=== PATIENT | female | born 1955 | race Caucasian/White ===

== ENCOUNTER 2024-03-18 20:09 | Inpatient (IN) | payer MEDICARE, BC, SELFPAY ==
[2024-03-18] VITALS (22 sets, daily range): BP systolic 82–99; BP diastolic 42–56; PULSE 94–113; RESP 20; TEMP 35.6; O2SAT 90–97; BMI 50.1
--- NOTE | 2024-03-18 20:31 | CRLHL7_ITS ---
For Patients: As a result of the Cures Act, medical imaging exams and procedure reports are released immediately into your electronic medical record. You may view this report before your referring provider. If you have questions, please contact your health care provider. INDICATION: Diffuse abdominal pain. TECHNIQUE: CT abdomen and pelvis acquired with 95 cc of Isovue 370 IV contrast. COMPARISON: CT chest from the same day. FINDINGS: Lower chest: Dictated separately. Liver: Unremarkable. Normal in size and attenuation. No suspicious masses. Gallbladder and bile ducts: Status post cholecystectomy. No abnormal biliary ductal dilatation. Pancreas: Unremarkable. No mass or inflammation. Spleen: Unremarkable. Normal in size. No masses. Adrenal glands: Unremarkable. No nodules. Kidneys: 2 small nonobstructing right nephroliths measuring up to 7 mm. Unremarkable left kidney. No suspicious mass. No hydronephrosis. GI tract: Diverticulosis without pericolonic inflammation. No obstruction. Normal appendix. Vasculature: Abdominal aorta is normal in caliber. Mesenteric arteries are patent. Lymph nodes: No lymphadenopathy. Peritoneum/Abdominal Wall: Unremarkable. No free air or significant free fluid. Pelvis: Status post hysterectomy. Bones: Unremarkable for age. IMPRESSION: 1. No acute findings within the abdomen or pelvis. 2. Few nonacute findings, as above. Please note that all CT scans at this facility use dose modulation, iterative reconstruction, and/or weight-based dosing when appropriate to reduce radiation dose to as low as reasonably achievable. Dictated by Nghia Moreno MD @ 03/18/2024 10:40:22 PM (Electronically Signed)
--- NOTE | 2024-03-18 20:32 | CRLHL7_ITS ---
For Patients: As a result of the Century Cures Act, medical imaging exams and procedure reports are released immediately into your electronic medical record. You may view this report before your referring provider. If you have questions, please contact your health care provider. INDICATION: Shortness of breath. TECHNIQUE: CT chest PE was acquired with 95 cc Isovue 370 IV contrast. COMPARISON: CT abdomen and pelvis from the same day. FINDINGS: Heart and vasculature: Contrast opacification of the pulmonary arterial tree is adequate. No sign of pulmonary embolism. Heart size is normal. Thoracic aorta and pulmonary artery are normal in caliber. Lungs and pleura: No suspicious nodules or infiltrates. Mild atelectasis within the anterior lingula. No pleural effusions or pneumothorax. Lymph nodes/mediastinum: No mediastinal, hilar, or axillary adenopathy. Chest wall: No masses. Upper abdomen: Dictated separately. Bones: Old right lateral 6th and anterolateral left 5th-7th rib fractures. IMPRESSION: No pulmonary embolism. No acute findings in the chest. Please note that all CT scans at this facility use dose modulation, iterative reconstruction, and/or weight-based dosing when appropriate to reduce radiation dose to as low as reasonably achievable. Dictated by Nghia Moreno MD @ 03/18/2024 10:25:06 PM (Electronically Signed)
--- NOTE | 2024-03-18 20:32 | CRLHL7_ITS ---
For Patients: As a result of the Century Cures Act, medical imaging exams and procedure reports are released immediately into your electronic medical record. You may view this report before your referring provider. If you have questions, please contact your health care provider. INDICATION: Delirious. TECHNIQUE: CT head without contrast. COMPARISON: None. FINDINGS: Brain parenchyma, CSF spaces, and extra-axial spaces: The denney-white differentiation is normal. No sign of mass, hemorrhage, or midline shift. No hydrocephalus. No extra-axial fluid collection. Skull base and calvarium: The visualized paranasal sinuses demonstrate no acute or significant findings. The mastoid air cells are clear. The visualized orbits are grossly unremarkable. No skull fracture. Atherosclerotic calcification of the bilateral carotid siphons. IMPRESSION: No evidence of an acute intracranial abnormality. Please note that all CT scans at this facility use dose modulation, iterative reconstruction, and/or weight-based dosing when appropriate to reduce radiation dose to as low as reasonably achievable. Dictated by Nghia Moreno MD @ 03/18/2024 10:19:24 PM (Electronically Signed)
--- NOTE | 2024-03-18 20:33 | ED.GENADULT ---
HPI - General Adult General Date Seen: 03/18/24 Chief complaint: Weakness Stated complaint: Weakness Time Seen by Provider: 03/18/24 20:10 Source: patient and EMS Mode of arrival: EMS Limitations: no limitations History of Present Illness HPI narrative: Patient is a 68-year-old female presenting to the emergency department for multiple complaints. For the past 5 days she has been having body aches, chills, shortness of breath. Today she started having. Continence. She states she feels like she constantly has to urinate but cannot hold it in time to make it to the bathroom. This is abnormal for her. Has not had any pain or burning urination but does state it has been very dark. She believes there is some blood in it. Does not have a history of frequent UTIs. States she bought a home test strips and checked for UTI it was negative. She also had a negative home COVID test. She has continued to get weaker with a headache and shortness of breath so EMS was called. EMS arrived they states she was satting 90% on room air. She was placed on oxygen. She states she is having a headache also. Has been trying drink plenty of fluids but has not had much to eat. States she is always feeling chills and having diaphoretic. Has not had any fevers. Her daughter states the patient seems to be delirious. No history of heart or lung disease. She does have diabetes. States she last saw her primary care doctor week ago and everything was normal. She is also having diffusely tender abdomen. Has had previous C-sections and cholecystectomy. She states she cannot say exactly where the pain hurts just that everything hurts. States he had a bowel movement yesterday was normal. Has not had any nausea or vomiting. Related Data Allergies Allergy/AdvReac Type Severity Reaction Status Date / Time No Known Drug Allergies Allergy Verified 03/18/24 20:18 Review of Systems Status of ROS: Reports: 10 or more systems reviewed and unremarkable except as noted in History and below Exam Narrative: Exam Narrative: Const: Well-nourished, Well-developed, in moderate distress Eyes: PERRL, no conjunctival injection, and symmetrical lids HENT: Atraumatic external nose and ears. Moist mucous membranes. Neck: Symmetric, trachea midline, No thyromegaly. CVS: Tachycardia, No murmurs or gallops. Peripheral pulses 2+ and equal in all extremities RESP: Increased respiratory effort. Clear to auscultation bilaterally. GI: Diffusely tender abdomen, No rebound or guarding. MSK:Extremities w/o deformity, Normal Active ROM Skin: Warm, Dry. No rashes or lesions. Neuro: Normal Muscle tone, No focal neurological deficits. Psych: Awake, Alert, & Oriented x3. Appropriate mood and affect. Const: Vital Signs, click to edit/add: Vital Signs - 24 hr 03/18/24 20:13 03/18/24 20:56 03/18/24 21:00 Temperature 96.0 F L Pulse Rate 100 102 H Pulse Rate [Left P ulse Oximeter] 113 H Respiratory Rate 20 Blood Pressure Blood Pressure [Ri ght Upper Arm] 92/53 L Pulse Oximetry 92 90 92 Oxygen Delivery Me thod Nasal Cannula 03/18/24 21:36 03/18/24 21:45 03/18/24 21:54 Temperature Pulse Rate 110 H 106 H 104 H Pulse Rate [Left P ulse Oximeter] Respiratory Rate Blood Pressure 82/42 L Blood Pressure [Ri ght Upper Arm] Pulse Oximetry 93 91 93 Oxygen Delivery Me thod 03/18/24 21:59 03/18/24 22:00 03/18/24 22:04 Temperature Pulse Rate 104 H 101 H 104 H Pulse Rate [Left P ulse Oximeter] Respiratory Rate Blood Pressure 93/52 L 99/52 L Blood Pressure [Ri ght Upper Arm] Pulse Oximetry 90 93 94 Oxygen Delivery Me thod 03/18/24 22:15 03/18/24 22:17 03/18/24 22:27 Temperature Pulse Rate 100 99 99 Pulse Rate [Left P ulse Oximeter] Respiratory Rate Blood Pressure 88/46 L 89/53 L Blood Pressure [Ri ght Upper Arm] Pulse Oximetry 95 94 96 Oxygen Delivery Me thod 03/18/24 22:30 03/18/24 22:32 03/18/24 22:45 Temperature Pulse Rate 94 96 99 Pulse Rate [Left P ulse Oximeter] Respiratory Rate Blood Pressure 94/56 L Blood Pressure [Ri ght Upper Arm] Pulse Oximetry 97 96 92 Oxygen Delivery Me thod 03/18/24 22:47 03/18/24 23:22 03/18/24 23:29 Temperature Pulse Rate 98 95 Pulse Rate [Left P ulse Oximeter] Respiratory Rate Blood Pressure 95/53 L 89/55 L Blood Pressure [Ri ght Upper Arm] Pulse Oximetry 92 94 Oxygen Delivery Me thod 03/18/24 23:30 03/18/24 23:32 03/18/24 23:45 Temperature Pulse Rate 96 97 94 Pulse Rate [Left P ulse Oximeter] Respiratory Rate Blood Pressure Blood Pressure [Ri ght Upper Arm] Pulse Oximetry 94 96 96 Oxygen Delivery Me thod 03/18/24 23:47 03/19/24 00:00 03/19/24 00:02 Temperature Pulse Rate 96 93 94 Pulse Rate [Left P ulse Oximeter] Respiratory Rate Blood Pressure 95/43 L 88/56 L Blood Pressure [Ri ght Upper Arm] Pulse Oximetry 96 95 94 Oxygen Delivery Me thod 03/19/24 00:02 03/19/24 00:02 03/19/24 00:15 Temperature Pulse Rate 94 94 90 Pulse Rate [Left P ulse Oximeter] Respiratory Rate Blood Pressure 88/56 L 88/56 L Blood Pressure [Ri ght Upper Arm] Pulse Oximetry 94 94 94 Oxygen Delivery Me thod 03/19/24 00:17 03/19/24 00:30 03/19/24 00:32 Temperature Pulse Rate 90 89 92 Pulse Rate [Left P ulse Oximeter] Respiratory Rate Blood Pressure 96/46 L 96/42 L Blood Pressure [Ri ght Upper Arm] Pulse Oximetry 94 94 96 Oxygen Delivery Me thod 03/19/24 00:45 03/19/24 00:47 03/19/24 01:00 Temperature Pulse Rate 93 91 92 Pulse Rate [Left P ulse Oximeter] Respiratory Rate Blood Pressure 94/44 L Blood Pressure [Ri ght Upper Arm] Pulse Oximetry 95 95 96 Oxygen Delivery Me thod 03/19/24 01:15 03/19/24 01:17 03/19/24 01:18 Temperature Pulse Rate 89 88 89 Pulse Rate [Left P ulse Oximeter] Respiratory Rate Blood Pressure 91/52 L 88/52 L Blood Pressure [Ri ght Upper Arm] Pulse Oximetry 95 95 96 Oxygen Delivery Me thod 03/19/24 01:20 03/19/24 01:23 03/19/24 01:30 Temperature Pulse Rate 86 85 Pulse Rate [Left P ulse Oximeter] 86 Respiratory Rate 18 Blood Pressure 101/55 L Blood Pressure [Ri ght Upper Arm] 101/55 L Pulse Oximetry 95 96 96 Oxygen Delivery Me thod Nasal Cannula 03/19/24 01:32 03/19/24 01:45 03/19/24 01:47 Temperature Pulse Rate 87 87 88 Pulse Rate [Left P ulse Oximeter] Respiratory Rate Blood Pressure 97/52 L 91/54 L Blood Pressure [Ri ght Upper Arm] Pulse Oximetry 96 96 96 Oxygen Delivery Me thod 03/19/24 01:48 03/19/24 02:00 03/19/24 02:01 Temperature Pulse Rate 86 86 81 Pulse Rate [Left P ulse Oximeter] Respiratory Rate Blood Pressure 91/57 L 93/64 Blood Pressure [Ri ght Upper Arm] Pulse Oximetry 96 97 96 Oxygen Delivery Me thod 03/19/24 02:03 Temperature Pulse Rate 84 Pulse Rate [Left P ulse Oximeter] Respiratory Rate Blood Pressure 98/61 Blood Pressure [Ri ght Upper Arm] Pulse Oximetry 97 Oxygen Delivery Me thod Course Vital Signs Vital signs: Initial Vital Signs Temperature 96.0 F L 03/18/24 20:13 Temperature Source Temporal Artery Scan 03/18/24 20:13 Pulse Rate 113 H 03/18/24 20:13 Pulse Rhythm Regular 03/18/24 20:13 Respiratory Rate 20 03/18/24 20:13 Blood Pressure 92/53 L 03/18/24 20:13 Blood Pressure Mean 66 L 03/18/24 20:13 Blood Pressure Position Semi-Fowlers 03/18/24 20:13 Pulse Oximetry 92 03/18/24 20:13 Oxygen Delivery Method Nasal Cannula 03/18/24 20:13 Vital Signs Temperature 96.0 F L 03/18/24 20:13 Pulse Rate 113 H 03/18/24 20:13 Respiratory Rate 20 03/18/24 20:13 Blood Pressure 92/53 L 03/18/24 20:13 Pulse Oximetry 92 03/18/24 20:13 Oxygen Delivery Method Nasal Cannula 03/18/24 20:13 Temperature 96.0 F L 03/18/24 20:13 Pulse Rate 84 03/19/24 02:03 Respiratory Rate 18 03/19/24 01:23 Blood Pressure 98/61 03/19/24 02:03 Pulse Oximetry 97 03/19/24 02:03 Oxygen Delivery Method Nasal Cannula 03/19/24 01:23 Medications Administered Medications: Generic Name Dose Route Start Last Admin Trade Name Demetrio PRN Reason Stop Dose Admin Vancomycin/PEG/NADA/Lysine/Water 2 gm in 400 mls @ 200 mls/hr 03/18/24 23:00 03/19/24 01:55 Vancomycin 2 Gm/400 Ml IVPB Infused Q12H SUZAN Infusion Protocol Discontinued Medications Generic Name Dose Route Start Last Admin Trade Name Demetrio PRN Reason Stop Dose Admin Lactated Ringer's 1,000 mls @ 1,000 mls/hr 03/18/24 20:31 03/18/24 23:42 Lactated Ringers 1000 Ml IV 03/18/24 21:30 Not Given .Q1H ONE Sodium Chloride 1,000 mls @ 1,000 mls/hr 03/18/24 21:55 03/19/24 00:44 0.9 % Sodium Chloride 1000 Ml IV 03/19/24 00:12 Infused .Q1H SUZAN Infusion Piperacillin Sod/Tazobactam 100 mls @ 200 mls/hr 03/18/24 22:52 03/19/24 00:44 Sod 3.375 gm/ Sodium Chloride IVPB 03/18/24 22:53 Infused ONCE ONE Infusion Medical Decision Making MDM Narrative Medical decision making narrative: Patient is a 68-year-old female presenting to the emergency department for multiple issues. She is short of breath, weak, and according family, slightly confused. Considering all of this she has a very broad workup. Differential could include infection, blood clots, ACS. I will do a CT scan of her head due to her confusion. Was do a CTA of her chest to look for pulmonary embolism or pneumonia. CT scan of the abdomen pelvis ordered to look for any intra-abdominal issues that could be causing her generalize symptoms. Will order a CBC, lactate, CRP, pro calc, BMP, EKG, troponin, urinalysis, COVID/flu/RSV. Lab work came back with a white count of 22. Will give her fluids per sepsis protocol, of note I used adjusted body weight for fluid instead of total body weight as she is quite obese and I would be concerned that given her 3.6 L of fluid would cause fluid overload in this lady. procalcitonin is at 60 and CRP is elevated 22.6. She has slightly elevated liver enzymes and a lactate of 2.2. Will continue to monitor this lactate. Troponin came back elevated 0.5. Creatinine appears to be at baseline. Potassium is slightly low at 3.2. I am very concerned she has infection and will empirically treat her with vanco and Zosyn. CT scans all returned the reviewed by myself and the radiologist showing no acute concerning abnormalities. Urinalysis shows no signs of a UTI. I do not currently know what is causing this patient's symptoms but I do believe she has an infection somewhere. I reviewed all of her skin again instilled do not see any cellulitis. Her heart rate has though improved significantly at this time from 92. She is not appear to be confused at all anymore. Repeat lactate is 2 and repeat troponin has come from 0.5 to 0.4. Her lab work is improving but her blood pressure continues to be hypotensive but she is not meeting criteria currently to need pressors. She has been able to ambulate in the emergency department to go to the bathroom. She states overall she is feeling better. She is currently on nasal cannula without slowly because she uses a CPAP at night. She states otherwise she is not feel like she would need it. When she is awake and we take her off oxygen she has acceptable oxygen saturation above 90. After giving a different size blood pressure cuff patient's blood pressures were better. She was accepted by the [facility] hospitalist group for admission Lab Data Labs: Lab Results 03/18/24 03/18/24 03/18/24 Range/Units 20:25 20:48 21:08 WBC 22.65 H (4.50-11.00) K/uL RBC 4.00 (4.00-5.20) m/uL Hgb 12.1 (12.0-16.0) gm/dL Hct 35.4 (33.0-51.0) % MCV 89 (80-100) fL MCH 30 (26-34) pg MCHC 34 (32-36) gm/dL RDW Coeff of Rikki 14.6 (11.5-15.5) % Plt Count 115 L (140-440) K/uL Neut % (Auto) 86.0 H (42.0-72.0) % Lymph % (Auto) 4.0 L (20-44) % Porter % (Auto) 8.0 (0.0-11.0) % Eos % (Auto) 0.3 (0.0-7.0) % Baso % (Auto) 0.2 (0.0-3.0) % Neut # (Auto) 19.50 H (1.7-7.0) K/uL Lymph # (Auto) 0.90 (0.90-2.90) K/uL Porter # (Auto) 1.80 H (0.00-0.90) K/UL Eos # (Auto) 0.10 (0.00-0.50) K/uL Baso # (Auto) 0.00 (0.00-0.30) K/uL Abs Immat Gran (auto) 0.30 (0.00-0.30) K/uL Imm/Tot Granulo (auto) 1.5 % Sodium 132 L (135-149) mmol/L Potassium 3.2 L (3.6-5.1) mmol/L Chloride 100 (96-114) mmol/L Carbon Dioxide 24 (20-32) mmol/L Anion Gap 8 (7-15) mEq/L BUN 59 H (7-30) mg/dL Creatinine 1.3 (0.5-1.5) mg/dL Estimated Creat Clear 31.69 Estimated GFR 45 ml/min Glucose 274 H (60-115) mg/dL Lactate 2.2 H (0.5-1.9) mmol/L Calcium 8.7 (8.4-10.6) mg/dL Magnesium 2.2 (1.5-2.6) mg/dL Total Bilirubin 1.4 (0.1-1.5) mg/dL AST 63 H (12-35) U/L ALT 39 H (4-35) U/L Alkaline Phosphatase 239 H (40-150) U/L Troponin I 0.05 H (0.01-0.04) ng/mL C-Reactive Protein 22.6 H (0.5-1.0) mg/dL NT-Pro-B Natriuret Pep 1860 pg/mL Total Protein 5.8 L (6.0-8.3) g/dL Albumin 3.0 L (3.3-5.0) g/dL Procalcitonin 60.20 H (<0.50) ng/mL Urine Color (Yellow) Urine Appearance (Clear) Urine pH (5.0-8.5) Ur Specific [place] (1.000-1.030) Urine Protein (Negative) Urine Glucose (UA) (Negative) Urine Ketones (Negative) Urine Blood (Negative) Urine Nitrite (Negative) Urine Bilirubin (Negative) Urine Urobilinogen (0.2-1.0) Ur Leukocyte Esterase (Negative) Urine RBC (0-2) Urine WBC (0-5) Ur Squamous Epith Cells (None-Few) Urine Bacteria (None) SARS-CoV-2 (PCR) Negative SARS-CoV-2 (Negative) Influenza Type A (PCR) Negative PCR FLU A (Negative) Influenza Type B (PCR) Negative PCR FLU B (Negative) RSV (PCR) Negative PCR RSV (Negative) Lab Acknowledgement Test Added 03/18/24 03/18/24 03/18/24 Range/Units 23:00 23:09 Unknown WBC (4.50-11.00) K/uL RBC (4.00-5.20) m/uL Hgb (12.0-16.0) gm/dL Hct (33.0-51.0) % MCV (80-100) fL MCH (26-34) pg MCHC (32-36) gm/dL RDW Coeff of Rikki (11.5-15.5) % Plt Count (140-440) K/uL Neut % (Auto) (42.0-72.0) % Lymph % (Auto) (20-44) % Porter % (Auto) (0.0-11.0) % Eos % (Auto) (0.0-7.0) % Baso % (Auto) (0.0-3.0) % Neut # (Auto) (1.7-7.0) K/uL Lymph # (Auto) (0.90-2.90) K/uL Porter # (Auto) (0.00-0.90) K/UL Eos # (Auto) (0.00-0.50) K/uL Baso # (Auto) (0.00-0.30) K/uL Abs Immat Gran (auto) (0.00-0.30) K/uL Imm/Tot Granulo (auto) % Sodium (135-149) mmol/L Potassium (3.6-5.1) mmol/L Chloride (96-114) mmol/L Carbon Dioxide (20-32) mmol/L Anion Gap (7-15) mEq/L BUN (7-30) mg/dL Creatinine (0.5-1.5) mg/dL Estimated Creat Clear Estimated GFR ml/min Glucose (60-115) mg/dL Lactate 2.0 H (0.5-1.9) mmol/L Calcium (8.4-10.6) mg/dL Magnesium (1.5-2.6) mg/dL Total Bilirubin (0.1-1.5) mg/dL AST (12-35) U/L ALT (4-35) U/L Alkaline Phosphatase (40-150) U/L Troponin I 0.04 (0.01-0.04) ng/mL C-Reactive Protein (0.5-1.0) mg/dL NT-Pro-B Natriuret Pep pg/mL Total Protein (6.0-8.3) g/dL Albumin (3.3-5.0) g/dL Procalcitonin (<0.50) ng/mL Urine Color Yellow (Yellow) Urine Appearance Clear (Clear) Urine pH 6.0 (5.0-8.5) Ur Specific [place] 1.010 (1.000-1.030) Urine Protein Negative (Negative) Urine Glucose (UA) 2+ A (Negative) Urine Ketones Negative (Negative) Urine Blood Negative (Negative) Urine Nitrite Negative (Negative) Urine Bilirubin Negative (Negative) Urine Urobilinogen 4.0 A (0.2-1.0) Ur Leukocyte Esterase Negative (Negative) Urine RBC 0-2 (0-2) Urine WBC 0-2 (0-5) Ur Squamous Epith Cells None (None-Few) Urine Bacteria None (None) SARS-CoV-2 (PCR) (Negative) Influenza Type A (PCR) (Negative) Influenza Type B (PCR) (Negative) RSV (PCR) (Negative) Lab Acknowledgement Imaging Data CT scan - head: Attestation: I have reviewed the pertinent imaging results. Radiologist's impression: No evidence of an acute intracranial abnormality. Please note that all CT scans at this facility use dose modulation, iterative reconstruction, and/or weight-based dosing when appropriate to reduce radiation dose to as low as reasonably achievable. Dictated by Nghia Moreno MD @ 03/18/2024 10:19:24 PM CTA chest: Attestation: I have reviewed the pertinent imaging results. Radiologist's impression: No pulmonary embolism. No acute findings in the chest. Please note that all CT scans at this facility use dose modulation, iterative reconstruction, and/or weight-based dosing when appropriate to reduce radiation dose to as low as reasonably achievable. Dictated by Nghia Moreno MD @ 03/18/2024 10:25:[address] scan abdomen and pelvis: Radiologist's impression: 1. No acute findings within the abdomen or pelvis. 2. Few nonacute findings, as above. Please note that all CT scans at this facility use dose modulation, iterative reconstruction, and/or weight-based dosing when appropriate to reduce radiation dose to as low as reasonably achievable. Dictated by Nghia Moreno MD @ 03/18/2024 10:40:22 PM ECG Data Attestation: I personally reviewed and interpreted this ECG as follows: Prior ECG tracings: not available for review Interpretation: Sinus tachycardia with a rate of 110 beats per minute, normal intervals, normal axis, no ST or T-wave abnormalities Critical Care Time Critical Care Time Critical Care Time: Yes Attestation: The patient required my highest level preparedness to intervene emergently and I personally spent this critical care time directly and personally managing the patient. This critical care time included: Obtaining a history; Examining the patient; Pulse oximetry; Ordering and reviewing of studies; Arranging urgent treatment with development of a management plan; Evaluation of patients response to treatment; Frequent reassessment discussions with other providers. This critical care time was performed to assess and manage the high probability of imminent life-threatening deterioration that could result in multiorgan failure. It was exclusive of separate billable procedures and treating other patients and teaching time. Total Critical Care Time in Minutes: 52 Discharge Plan Discharge Clinical Impression: Sepsis Qualifiers: Sepsis type: sepsis due to unspecified organism Sepsis acute organ dysfunction status: unspecified Qualified Code(s): A41.9 - Sepsis, unspecified organism Patient Disposition: Admitted As Observation Condition: Improved
[2024-03-18 21:00] LABS: Lactate Sepsis w/Reflex* 2.2 mmol/L (0.5-1.9)
[2024-03-18 21:04] LABS: Basophils Percent Auto 0.2 % (0.0-3.0); Eosinophils Percent Auto 0.3 % (0.0-7.0); Hematocrit 35.4 % (33.0-51.0); Hemoglobin* 12.1 gm/dL (12.0-16.0); Immature Granulocytes Pct Auto 1.5 %; Mean Corpuscular HGB Conc 34 gm/dL (32-36); Mean Corpuscular Hemoglobin 30 pg (26-34); Mean Corpuscular Volume 89 fL (80-100); Platelet Count* 115 K/uL (140-440); RDW Coefficient of Variation % 14.6 % (11.5-15.5); White Blood Count* 22.65 K/uL (4.50-11.00)
[2024-03-18 21:06] LABS: Slide Review Reflex No
[2024-03-18 21:12] LABS: PCR FLU A Negative PCR FLU A (Negative); PCR FLU B Negative PCR FLU B (Negative); PCR RSV Negative PCR RSV (Negative); SARS PCR* Negative SARS-CoV-2 (Negative)
[2024-03-18 21:17] LABS: Chloride* 100 mmol/L (96-114)
[2024-03-18 21:18] LABS: Potassium* 3.2 mmol/L (3.6-5.1); Sodium* 132 mmol/L (135-149)
[2024-03-18 21:20] LABS: Creatinine* 1.3 mg/dL (0.5-1.5); Est. Creatinine Clearance* 31.69; Estimated Glomerular Filt Rate 45 ml/min
[2024-03-18 21:21] LABS: Alanine Aminotransferase* 39 U/L (4-35); Alkaline Phosphatase* 239 U/L (40-150); Anion Gap 8 mEq/L (7-15); Aspartate Amino Transferase* 63 U/L (12-35); Bilirubin Total* 1.4 mg/dL (0.1-1.5); Blood Urea Nitrogen* 59 mg/dL (7-30); Calcium* 8.7 mg/dL (8.4-10.6); Carbon Dioxide* 24 mmol/L (20-32); Glucose* 274 mg/dL (60-115); Magnesium* 2.2 mg/dL (1.5-2.6); Total Protein* 5.8 g/dL (6.0-8.3)
[2024-03-18 21:33] LABS: Troponin I* 0.05 ng/mL (0.01-0.04)
[2024-03-18 21:38] LABS: C Reactive Protein* 22.6 mg/dL (0.5-1.0); NT Pro B Type NatriureticPept* 1860 pg/mL
--- OUTSIDE RECORDS SUMMARY | 2024-03-18 21:48 | XMS_ITS | Clinical Summary ---
Author Organization [employer] [facility] Address [place], [place] [address] Care Team Providers Care Mix Chemist Name Role Phone Zane No MD Primary Care Provider + [phone] Allergies No known active allergies Medications ibuprofen (ADVIL; MOTRIN) 600 mg tabletIndication s:Rib pain on right side One tablet by mouth for one dose 1 Tablet 06/28/19 Active CPAPIndications: JASWANT (obstructive sleep apnea) resmed CPAP machine for home use at pressure 5-16 cmw, CPAP mask- mask of choice, fit to comfort one per 3 months 1 Each 06/18/19 24 Active medication order composer Prevagin Active lisinopriL (PRINIVIL; ZESTRIL) 10 mg tabletIndication s:Benign essential HTN Take 1 Tablet (10 mg) by mouth once daily. 90 Tablet 3 08/30/19 24 Active buPROPion (WELLBUTRIN SR) 150 mg Sustained-Releas e tabletIndication s:Depression, major, single episode, moderate (HC) Take 1 Tablet (150 mg) by mouth two times daily. 180 Tablet 08/30/19 24 Active escitalopram oxalate (LEXAPRO) 5 mg tabletIndication s:Depression, major, single episode, moderate (HC) Take 1 Tablet (5 mg) by mouth once daily. 90 Tablet 3 08/30/19 24 Active hydroCHLOROthiaz helga 12.5 mg tabletIndication s:Primary hypertension Take 1 Tablet (12.5 mg) by mouth once daily. 90 Tablet 3 11/12/19 24 Active ketoconazole 2 % creamIndications :Intertrigo Apply to affected areas/rash on body twice daily until resolved 60 g 11 01/29/20 24 Active hydrocortisone 2.5 % creamIndications :Intertrigo Apply topically to affected area(s) two times daily. Do not use more than 3 weeks. 60 g 01/29/20 24 Active CPAPIndications: JASWANT (obstructive sleep apnea) CPAP supplieschoice of mask, lifetime length of need, daily use. 1 Each 2 03/09/19 25 Active empagliflozin (Jardiance) 10 mg tabletIndication s:Type 2 diabetes mellitus without complication, without long-term current use of insulin (HC) Take 1 Tablet (10 mg) by mouth once daily. 90 Tablet 1 03/09/19 25 Active CPAPIndications: JASWANT (obstructive sleep apnea) CPAP supplieschoice of mask, lifetime length of need, daily use. 1 Each 2 04/25/19 24 025 Discontin ued(Reord er (E-cancel not sent)) empagliflozin (Jardiance) 10 mg tabletIndication s:Type 2 diabetes mellitus without complication, without long-term current use of insulin (HC) Take 1 Tablet (10 mg) by mouth once daily. 30 Tablet 5 11/12/19 24 025 Discontin ued(Reord er (E-cancel not sent)) Active Problems Problem Noted Date Diagnosed Date Primary hypertension 03/09/2024 JASWANT (obstructive sleep apnea) 08/30/2023 Type 2 diabetes mellitus wit hout complication, without long-term current use of insulin 08/30/2023 Obesity, morbid 07/27/2022 Depression, major, single episode, moderate /0 06/2020 Resolved Problems Problem Noted Date Diagnosed Date Resolved Date Benign essential HTN 09/29/2020 025 Encounters Date Type Department Care Team Description 03/09/2024 7:40 AM TECHNICAL ADMINISTRATIVE ASSISTANT Office Visit [facility] [address] [place] [address] Zane No MD Medication Management 03/08/2024 Travel 01/29/2024 8:10 AM TECHNICAL ADMINISTRATIVE ASSISTANT Office Visit [facility] [address] [facility] [address] [place] [address] Zoë Quach PA Derm Problem 01/29/2024 Travel 01/24/2024 Travel 12/31/2023 3:00 PM TECHNICAL ADMINISTRATIVE ASSISTANT Patient Outreach [facility] [address] [facility] [address] [place] [address] Telehealth (1 x 1 Follow Up) from Last 3 Months Immunizations Name Administration Dates Next Due COVID-19 vaccine (Moderna 10 0mcg/0.5mL) PF, MDV 02/28/2021,06/10/2020,05/13/2020 COVID-19 vaccine (Negotiant-Bio NTech 30mcg/0.3mL) 12YO+ DIONISIO-SUCROSE PF, MDV 07/26/2021 Td, Preservative Free (age >= 7 Years) 7 Tdap 10/11/2022,02/01/2017 Family History Medical History Relation Name Comments Cancer Mother Cancer-breast No Family History Cancer-ovarian No Family History Relation Name Status Comments Mother Social History Tobacco Use Types Packs/Day Years Used Date Smoking Tobacco: Never Passive Smoke Exposure: Never Smokeless Tobacco: Never Tobacco Cessation:Counseling Given: Not Answered Alcohol Use Standard Drinks/Week Comments Yes 0 (1 standard drink = 0.6 oz pur e alcohol) occ PHQ-2 Answer Date Recorded PHQ-2 TOTAL SCORE 0 03/09/2024 Social Connections Answer Date Recorded Do you often feel lonely or isolated from those around you? 0 08/30/2023 Financial Resource Strain Answer Date R ecorded Difficulty of Paying Living Expenses 3 08/30/2023 Difficulty of Paying Living Expenses Not on file 08/30/2023 Food Insecurity Answer Date Recorded Do you worry your food will run out before you are able to buy more? 1 08/30/2023 Transportation Needs Answer Date Record ed Does lack of transportation keep you from medica l appointments? 1 08/30/2023 Does lack of transportation keep you from work, meetings or getting things that you need? 1 08/30/2023 Housing Stability Answer Date Recorded What is your housing situation today? 1 08/30/2023 Utilities Answer Date Recorded Do you have trouble paying f or utilities (for example, heat, electricity, water, phone)? 1 08/30/2023 Comments No Sex and Gender Information Value Date Recorded Sex Assigned at Not on file Legal Sex Female 8:09 AM TECHNICAL ADMINISTRATIVE ASSISTANT Gender Identity Not on file Sexual Orientation Not on file Obstetrics History Last Filed Vital Signs Vital Sign Reading Time Taken Comments Blood Pressure 110/70 03/09/2024 7:45 AM TECHNICAL ADMINISTRATIVE ASSISTANT Pulse 72 03/09/2024 7:45 AM TECHNICAL ADMINISTRATIVE ASSISTANT Temperature 36.8 C (98.3 F) 07/26/2021 8:04 AM CDT Respiratory Rate 22 06/27/2021 8:22 AM CDT Oxygen Saturation 96% 06/18/2023 2:15 PM CDT Inhaled Oxygen Concentration - - Weight 117.5 kg (259 lb) 03/09/2024 7:45 AM TECHNICAL ADMINISTRATIVE ASSISTANT Height 154.5 cm (5' 0.83) 03/09/2024 7:45 AM CS T Body Mass Index 49.22 03/09/2024 7:45 AM TECHNICAL ADMINISTRATIVE ASSISTANT Plan of Treatment Health Maintenance Due Date Last Done Comments Pneumococcal series for age 50+ (1 of 2 - PCV) 12/19/1975 Zoster (shingles) series for age 50+ (1 of 2) 2006 RSV vaccine for adults or (1 - Risk 60-74 years 1-dose series) 2016 COVID-19 vaccine series ( season) 2023 07/26/2021, 02/28/2021, 06/10/2020, Additional history exists Influenza for age 65+ 10/27/2023 Mammogram for age 45-75 08/16/2024 08/17/19 23, 04/09/2019, 04/02/2016, Additional history exists BMI (ht and wt on same day) for age 18+ 03/09/2025 03/09/2024, 06/18/2023, 06/27/2020 Depression screening for age 12+ 03/09/2025 03/09/2024, 08/30/2023, 08/16/2022, Additional history exists Colonoscopy through age 75 01/05/2026 01/06/2016 Lipids for age 45-75 08/29/2028 08/30/2023, 06/01/20 22 Tetanus booster 10/11/2032 10/11/2022, 09/2016, 04/04/2006 DEXA/DXA scan for age 65+ Completed 08/16/2022 Tdap Completed 10/11/2022, 02/01/2017 Hepatitis C screening for ag e 18-79 Completed 08/30/2023 Procedures Procedure Name Priority Date/Time Associated Diagnosis Comments URINE ALBUMIN TO CREATININE RATIO, RANDOM Routine 03/09/2024 8:42 AM TECHNICAL ADMINISTRATIVE ASSISTANT Type 2 diabetes mellitus without complication, without long-term current use of insulin (HC) BASIC METABOLIC PANEL Routine 03/09/2024 8:10 AM TECHNICAL ADMINISTRATIVE ASSISTANT Primary hypertension HEMOGLOBIN A1C MONITORING (POCT) Routine 03/09/2024 8:09 AM TECHNICAL ADMINISTRATIVE ASSISTANT Type 2 diabetes mellitus without complication, without long-term current use of insulin (HC) PATH TISSUE EXAM Routine 01/29/2024 8:30 AM TECHNICAL ADMINISTRATIVE ASSISTANT Neoplasm of uncertain behavior ANTI HCV Routine 08/30/2023 10:12 AM CDT Need for hepatitis C screening test LIPID PANEL W REFLEX MEASURED LDL Routine 08/30/2023 10:12 AM CDT Type 2 diabetes mellitus without complication, without long-term current use of insulin (HC) XR DXA BONE DENSITY 2 SITES AXIAL Routine 08/16/2022 8:18 AM CDT Osteoporosis screening XR MAMMO BILAT SCREENING Routine 08/16/2022 7:59 AM CDT Visit for screening mammogram SCAN-COLONOSCOPY 01/06/2016 12:0 0 AM TECHNICAL ADMINISTRATIVE ASSISTANT from Last 3 Months or Most Recently Relevant to Health Maintenance Results * URINE ALBUMIN TO CREATININE RATIO, RANDOM (03/09/2024 8:42 AM TECHNICAL ADMINISTRATIVE ASSISTANT) ALB RAND URINE 17.1 mg/L 03/09/2024 4:33 PM TECHNICAL ADMINISTRATIVE ASSISTANT [facility] CREATININE,URIN E 0.59 g/L 03/09/2024 4:33 PM TECHNICAL ADMINISTRATIVE ASSISTANT [facility] ALBUMIN TO CREATININE RATIO,RAND UR 29.0 <30.0 mg/g creat 03/09/2024 4:33 PM TECHNICAL ADMINISTRATIVE ASSISTANT [facility] Urine URINE SPECIMEN / Unknown Non-Blood / Unknown 03/09/2024 8:42 AM TECHNICAL ADMINISTRATIVE ASSISTANT 03/09/2024 8:42 AM TECHNICAL ADMINISTRATIVE ASSISTANT Narrative [facility] - 03/09/2024 4:33 PM TECHNICAL ADMINISTRATIVE ASSISTANT If Albumin to Creatinine Ratio is elevated, consider the following: Elevations seen with incipient nephropathy associated with diabetes mellitus or hypertension. Stress, exercise,hematuria, and urinary tract infection may also produce elevated results. If clinically indicated, confirm with 24 Hour Albumin to Creatinine Ratio. us Zane No MD URINE Final Result [facility] [address] [place] [address], * (ABNORMAL) BASIC METABOLIC PANEL (03/09/2024 8:10 AM TECHNICAL ADMINISTRATIVE ASSISTANT) GLUCOSE 173(H) 65 - 99 mg/dL [facility] Comment: Fasting reference interval For someone without known diabetes, a glucose value >125 mg/dL indicates that they may have diabetes and this should be confirmed with a follow-up test. UREA NITROGEN (BUN) 23 7 - 25 mg/dL [facility] CREATININE 1.11(H) 0.50 - 1.05 mg/dL [facility] EGFR 54(L) > OR = 60 mL/min/1.7 3m2 [facility] BUN/CREATININE RATIO 21 6 - 22 (calc) [facility] SODIUM 141 135 - 146 mmol/L [facility] POTASSIUM 4.7 3.5 - 5.3 mmol/L [facility] CHLORIDE 103 98 - 110 mmol/L [facility] CARBON DIOXIDE 29 20 - 32 mmol/L [facility] ELECTROLYTE BALANCE 9 7 - 17 mmol/L (calc) [facility] CALCIUM 9.7 8.6 - 10.4 mg/dL [facility] Blood BLOOD SPECIMEN / Unknown 03/09/2024 8:10 AM TECHNICAL ADMINISTRATIVE ASSISTANT 03/09/2024 8:11 AM TECHNICAL ADMINISTRATIVE ASSISTANT Zane No MD CHEMISTRY Final Result Performing Organization Address [facility] Co de Phone Number [facility] [address] [place] [address], [place] [phone] [facility] [address] [place] [address] * (ABNORMAL) HEMOGLOBIN A1C MONITORING (POCT) (03/09/2024 8:09 AM TECHNICAL ADMINISTRATIVE ASSISTANT) POC HEMOGLOBIN A1C 6.7(H) <6.0 % OF TOTAL HGB [facility] Comment: Any point of care results exhibiting inconsistency with the patient's clinical status should be repeated using a different testing method. Blood BLOOD SPECIMEN / Unknown 03/09/2024 8:09 AM TECHNICAL ADMINISTRATIVE ASSISTANT 03/09/2024 8:09 AM TECHNICAL ADMINISTRATIVE ASSISTANT Zane No MD CHEMISTRY Final Result Performing Organization Address [facility] Co de Phone Number [facility] [address] [place] [address], [facility] [address] [facility] [place] [address] * PATH TISSUE EXAM (01/29/2024 8:30 AM TECHNICAL ADMINISTRATIVE ASSISTANT) Case Report Pathology Report Case: [id number] Authorizing Provider: Zoë Quach Collected: 01/29/2024 0830 JENNIFER Quesada Ordering Location: [facility] Received: 01/29/2024 1525 [facility] Pathologist: Mellisa Sun MD Specimen: Skin, right superior brow 02/03/2024 10:35 AM TECHNICAL ADMINISTRATIVE ASSISTANT [facility] Final Diagnosis SKIN, RIGHT SUPERIOR BROW, BIOPSY: 1. Minimal nonspecific lymphocytic inflammation with superficial dermal pigment deposition, see comment 2. Negative for malignancy 02/03/2024 10:35 AM [facility] Comment The changes are consistent with post-inflammato ry hyperpigmentati on. 02/03/2024 10:35 AM [facility] Clinical Information Rule out LPLK vs other 02/03/2024 10:35 AM [facility] Gross Description A) Received in formalin, labeled with the patient's name and right superior brow, is a 0.9 x 0.7 x 0.1 cm skin biopsy. There is a 0.7 x 0.5 cm granular soriano lesion. The specimen is inked green, trisected and entirely submitted in one cassette. RAL 01/30/2024 02/03/2024 10:35 AM [facility] Microscopic Description The final diagnosis is based on microscopic examination of appropriate sections of all specimens. Sections show mildly atrophic epidermis and superficial dermal melanosis in the absence of interface damage. The presence of green ink is confirmed on tissue sections. 02/03/2024 10:35 AM [facility] Additional Information Interpreted at [facility], Central Laboratory - [address], [place] [address] 02/03/2024 10:35 AM [facility] Other SPECIMEN FROM SKIN / Unknown Non-Blood / Unknown 01/29/2024 8:30 AM TECHNICAL ADMINISTRATIVE ASSISTANT 01/29/2024 3:25 PM TECHNICAL ADMINISTRATIVE ASSISTANT Zoë RODRIGUEZ PATHOLOGY/CYTOLOGY Final Result [facility] [address] [place] [address], * LIPID PANEL W REFLEX MEASURED LDL (08/30/2023 10:12 AM CDT) CHOLESTEROL,TOTAL 185 100 - 199 mg/dL 08/30/2023 3:59 PM CDT [facility] Comment: Cholesterol, Total Reference Ranges Desirable <200 mg/dL Borderline 200-239 mg/dL High >=240 mg/dL TRIGLYCERIDES 118 <150 mg/dL 08/30/2023 3:59 PM CDT [facility] HDL CHOLESTEROL 51 >40 mg/dL 3:59 PM CDT [facility] NON-HDL CHOLESTEROL 134 <145 mg/dl 08/30/2023 3:59 PM CDT [facility] CHOL/HDL RATIO 3.63 <4.50 08/30/2023 3:59 PM CDT [facility] LDL CHOLESTEROL 110 <=130 mg/dL 08/30/2023 3:59 PM CDT [facility] VLDL CHOLESTEROL 24 <=30 mg/dL 08/30/2023 3:59 PM CDT [facility] PROVIDER ORDERED STATUS FASTING 08/30/2023 3:59 PM CDT [facility] Blood BLOOD SPECIMEN / Unknown Venipuncture / Unknown 08/30/2023 10:12 AM CDT 08/30/2023 10:12 AM CDT us Zane oN MD CHEMISTRY Final Result [facility] [address] [place] [id number], * ANTI HCV (08/30/2023 10:12 AM CDT) HEPATITIS C ANTIBODY Non-Reacti ve Non-React emma 08/30/2023 4:43 PM CDT [facility] Comment:Please note, per www .CDC.gov: If a patient is known to be at high risk of HCV infection, or is symptomatic, and the physician's suspicion of HCV infection is high, HCV RNA testing is often employed and is of diagnostic value, even after an initial negative anti-HCV test result. Blood BLOOD SPECIMEN / Unknown Venipuncture / Unknown 08/30/2023 10:12 AM CDT 08/30/2023 10:12 AM CDT us Zane No MD SEND OUTS Final Result [facility] [address] [place] [address], [place] * (ABNORMAL) XR DXA BONE DENSITY 2 SITES AXIAL (08/16/2022 8:18 AM CDT) Anatomical Region Laterality Modality Spine, HIPS, HIPL, HIPR Other Impressions 08/30/2022 12:46 PM CDT Osteopenia. RECOMMENDATIONS: The National Osteoporosis Foundation recommends pharmacologic treatment for patients with T-scores of -2.5 or less, patients with prior history of fragility fractures, or patients with 10-year probability of greater than 3% at hips or greater than 20% of suffering major osteoporotic fractures. Recommend continued optimization of calcium and vitamin D intake through dietary means and/or supplementation and regular exercise. Repeat scan recommended in 3-5 years. Payton Mcadams PA-C [facility] 08/30/2022 Narrative 08/30/2022 12:46 PM CDT For Patients: Results are automatically released to your [facility] account once available, in compliance with federal regulations. This means that you may see your results before your provider has had a chance to review them. Please allow 2-3 business days for your provider to comment on the results. XR DXA Bone Mineral Density (BMD) EXAM LOCATION: [address] [address] PATIENT NAME: Dodie Ferrell DATE OF : 1955 EXAM DATE: 08/16/2022 REQUESTING PROVIDER: Mere Azul MD GENDER AT : female HEIGHT: 5' 1.46 (06/27/2020) WEIGHT: 274 lb (07/27/2022) MENOPAUSAL STATUS: Postmenopausal RACE/ETHNICITY: White RISK FACTORS: White Race CURRENT MEDICATION FOR BONE LOSS: NONE INDICATION: Screening for osteoporosis COMPARISON DATE(S): None DXA scans are compared to prior studies for a patient only when the two (or more) studies were performed on the same scanner. It is not possible to compare data generated on one scanner to data from another because there are not standards in DXA equipment. This applies even if the two scanners are made by the same engraving plate maker. PROCEDURE: Dual-energy x-ray absorptiometry performed with routine technique. Reporting is completed in the form of a T-score. The T-score represents the standard deviation from peak bone mass based on young healthy adult. A Z-score is used for diagnosis in premenopausal women, and for men under the age of 50. FINDINGS: RESULT LUMBAR SPINE L1 - L4 BMD: 1.449 g/cm2 T-Score: + 2.1 Z-Score: + 2.5 Change from prior: None RESULTS FEMUR Left femoral neck BMD: 0.778 g/cm2 T-Score: - 1.9 Z-Score: - 1.1 Change from prior: None Right femoral neck BMD: 0.819 g/cm2 T-Score: - 1.6 Z-Score: - 0.8 Change from prior: None Left hip BMD: 0.821 g/cm2 T-Score: - 0.5 Z-Score: - 1.1 Change from prior: None Right hip BMD: 0.828 g/cm2 T-Score: - 1.4 Z-Score: - 1.0 Change from prior: None WHO criteria: Normal: T-score at or above -1 SD Osteopenia: T-score between -1.1 and -2.4 SD Osteoporosis: T-score at or below -2.5 SD FRAX RISK CALCULATION (USED FOR OSTEOPENIA ONLY): 10-year probability of major osteoporotic fracture: 8.3%. 10-year probability of hip fracture: 1.0%. us Mere Azul MD DEXA Final Resul t * XR MAMMO BILAT SCREENING (08/16/2022 7:59 AM CDT) Anatomical Region Laterality Modality BREASTS, Breast Left, Breast Right Bilateral Mammography Impressions 08/16/2022 2:55 PM CDT There is no radiographic evidence for malignancy. Recommend annual mammograms. MAMMOGRAM ASSESSMENT: ACR 1 Negative PATIENTS: You will also receive a letter with your examination results in an easy to read format. If you have questions about your results, please contact your referring provider. Narrative 08/16/2022 2:55 PM CDT For Patients: As a result of the Century Cures Act, medical imaging exams and procedure reports are released immediately into your electronic medical record. You may view this report before your referring provider. If you have questions, please contact your health care provider. XR MAMMO BILAT SCREENING [[id number]] CLINICAL HISTORY: This is an asymptomatic 66 y.o. patient. INDICATION FOR EXAM: Mammogram Screening. TECHNIQUE: CC & MLO views were obtained. This study was evaluated with the assistance of Computer-Aided Detection. COMPARISON FILM: Yes 04/09/19 [facility] 04/02/16 [facility] FINDINGS: The breasts are almost entirely fatty. There are no dominant masses, suspicious micro calcifications or areas of architectural distortion. us Mere Azul MD MAMMO Final Resul t * SCAN-COLONOSCOPY (01/06/2016 12:00 AM TECHNICAL ADMINISTRATIVE ASSISTANT) us Scanner OTHER Final Result from Last 3 Months or Most Recently Relevant to Health Maintenance Insurance [facility] Care Teams Mix Chemist Relationship [place] [id number] [place] [address] PCP - General Family Practice 03/09/24
[2024-03-18] MEDS: 0.9 % SODIUM CHLORIDE 1000 ml 1,000 ML IV (22:00)
[2024-03-18 23:03] LABS: Appearance Urine Clear (Clear); Bilirubin Urine Negative (Negative); Blood Urine Negative (Negative); Color Urine Yellow (Yellow); Glucose Urine 2+ (Negative); Ketones Urine Negative (Negative); Leukocyte Esterase Urine Negative (Negative); Nitrite Urine Negative (Negative); Protein Urine Negative (Negative)
[2024-03-18 23:14] LABS: RBC Urine 0-2 (0-2); WBC Urine 0-2 (0-5)
[2024-03-18] MEDS: 0.9 % SODIUM CHLORIDE 1000 ml 1,000 ML 1200 ML IV (23:41)
[2024-03-18] MEDS: PIPERACILLIN/TAZOBACTAM 3.375 GM in 0.9 % SODIUM CHLORIDE Mini-bag 100 ML IVPB (23:41)
[2024-03-18 23:45] LABS: Troponin I* 0.04 ng/mL (0.01-0.04)
[2024-03-19] VITALS (40 sets, daily range): BP systolic 88–137; BP diastolic 42–74; PULSE 81–131; RESP 18–38; TEMP 36.1–38.9; O2SAT 30–98; BMI 49.4
[2024-03-19] MEDS: VANCOMYCIN 2 GM/400 ML 2 GM/400 ML PIGGYBACK IVPB (00:43)
--- NOTE | 2024-03-19 04:27 | W.PM.THH&P_ITS ---
Telehealth- H&P: HPI History of Present Illness Date Seen: 03/19/24 Chief complaint: Weakness Narrative: Dodie Ferrell is seen as an Interactive Telehealth visit. Dodie Ferrell is a 68 year old female with PMHx significant for HTN on lisinopril and HCTZ, Depression, prediabetes who presented to ED with c/o weakness and chills. Pt reports on saturday she had nausea, vomiting and chills. She reports episodes of uncontrolled shivers and body shakes since Saturday. She also had episodes of loss of bladder control and was not able to make it to bathroom on time at times. She also c/o on and off headaches. She reports she has not been able to eat much however has been trying to drink alot. She denies any cough, no phlegm, no chest pain unless when shivering. + mild sob. no leg swelling. Also has decreased stools and not eating much. NO abdominal pain. Workup in the emergency department showed white count 22.6, hemoglobin 12.1, hematocrit 35.4, platelets 115. Sodium 132, potassium 3.2, chloride 100, bicarb 24, BUN 59, creatinine 1.3, glucose 274, lactate 2.2, repeat lactate trended 2.0, AST 63, ALT 39, aphos 239, initial troponin 0.05, repeat troponin 0.04, CRP 22.6, proBNP 1860, procalcitonin 16.2. UA showed 2+ glucose otherwise nitrite negative leukocyte negative. No bacteria seen. Influenza A, B, RSV and SARS-CoV-[address] showed no evidence of an acute intracranial abnormality. CTA chest showed no pulmonary embolism. No acute findings in the chest. CT abdomen pelvis showed No acute findings within the abdomen and pelvis and CT abdomen. Showed 2 small nonobstructing right nephrolith measuring up to 7 mm. No hydronephrosis. GI tract showed diverticulosis without pericolonic inflammation. Patient did have softer blood pressures in the emergency department and received 3.5 L IV fluid. She also received vancomycin and Zosyn in the emergency department. Review of Systems Narrative: Complete ROS was performed, pertinent positives and negatives per HPI. [facility] Social History What is your current living situation?: I presently have a place to live Problems where you live: no known problems Problems where you live details: no known problems In the past 12 months, utilities in danger of being shut off: no In past 12 months, lack of transportation kept you from medical appts, meetings, work, or getting things needed for daily living: no In the past 12 mos, have been you worried that your food would run out before you had money to buy more?: never true In the past 12 mos, the food you bought just didn't last and you didn't have money to buy more?: never true Smoking Status: Never smoker Do you use any of these nicotine containing products: None Second hand tobacco smoke exposure: No How often do you have a drink containing alcohol: never How often do you have six or more drinks on one occasion: Less than monthly AUDIT-C Alcohol total score: 1 Non-prescribed substance use: denies use Caffeine: Yes (Coffee) How often does anyone, including family, friends and others, physically hurt you : never How often does anyone, including family, friends and others, insult or talk down to you: never How often does anyone, including family, friends and others, threaten you with harm: never How often does anyone, including family, friends and others, scream or curse at you: never Meds Home Medications and Allergies Allergies Allergy/AdvReac Type Severity Reaction Status Date / Time No Known Drug Allergies Allergy Verified 03/18/24 20:18 Exam Narrative Exam Narrative: Physical Exam GENERAL: ?vital signs reviewed, well developed and nourished, in no distress HEENT: pupils are equal round and reactive to light NECK: Supple HEART: Regular rate and rhythm without any rubs, murmurs, or gallops. LUNGS: Mild rhonchi other lima Clear to auscultation bilaterally with good air movement throughout ABDOMEN: Observation from nurse assisted exam, abdomen appears soft, nontender, and nondistended with Positive bowel sounds noted. EXTREMITIES: Strength and sensation is observed to be grossly within normal limits in the upper and lower extremities.? No focal strength deficit is observed. SKIN:? Observed warm and dry with color normal Const Vital Signs, click to edit/add: Vital Signs - 24 hr 03/18/24 20:13 03/18/24 20:56 03/18/24 21:00 Temperature 96.0 F L Pulse Rate 100 102 H Pulse Rate [Left Pulse Oximeter] 113 H Pulse Rate [Pulse Oximeter] Respiratory Rate 20 Blood Pressure Blood Pressure [Right Arm] Blood Pressure [Right Upper Arm] 92/53 L Pulse Oximetry 92 90 92 Oxygen Delivery Method Nasal Cannula 03/18/24 21:36 03/18/24 21:45 03/18/24 21:54 Temperature Pulse Rate 110 H 106 H 104 H Pulse Rate [Left Pulse Oximeter] Pulse Rate [Pulse Oximeter] Respiratory Rate Blood Pressure 82/42 L Blood Pressure [Right Arm] Blood Pressure [Right Upper Arm] Pulse Oximetry 93 91 93 Oxygen Delivery Method 03/18/24 21:59 03/18/24 22:00 03/18/24 22:04 Temperature Pulse Rate 104 H 101 H 104 H Pulse Rate [Left Pulse Oximeter] Pulse Rate [Pulse Oximeter] Respiratory Rate Blood Pressure 93/52 L 99/52 L Blood Pressure [Right Arm] Blood Pressure [Right Upper Arm] Pulse Oximetry 90 93 94 Oxygen Delivery Method 03/18/24 22:15 03/18/24 22:17 03/18/24 22:27 Temperature Pulse Rate 100 99 99 Pulse Rate [Left Pulse Oximeter] Pulse Rate [Pulse Oximeter] Respiratory Rate Blood Pressure 88/46 L 89/53 L Blood Pressure [Right Arm] Blood Pressure [Right Upper Arm] Pulse Oximetry 95 94 96 Oxygen Delivery Method 03/18/24 22:30 03/18/24 22:32 03/18/24 22:45 Temperature Pulse Rate 94 96 99 Pulse Rate [Left Pulse Oximeter] Pulse Rate [Pulse Oximeter] Respiratory Rate Blood Pressure 94/56 L Blood Pressure [Right Arm] Blood Pressure [Right Upper Arm] Pulse Oximetry 97 96 92 Oxygen Delivery Method 03/18/24 22:47 03/18/24 23:22 03/18/24 23:29 Temperature Pulse Rate 98 95 Pulse Rate [Left Pulse Oximeter] Pulse Rate [Pulse Oximeter] Respiratory Rate Blood Pressure 95/53 L 89/55 L Blood Pressure [Right Arm] Blood Pressure [Right Upper Arm] Pulse Oximetry 92 94 Oxygen Delivery Method 03/18/24 23:30 03/18/24 23:32 03/18/24 23:45 Temperature Pulse Rate 96 97 94 Pulse Rate [Left Pulse Oximeter] Pulse Rate [Pulse Oximeter] Respiratory Rate Blood Pressure Blood Pressure [Right Arm] Blood Pressure [Right Upper Arm] Pulse Oximetry 94 96 96 Oxygen Delivery Method 03/18/24 23:47 03/19/24 00:00 03/19/24 00:02 Temperature Pulse Rate 96 93 94 Pulse Rate [Left Pulse Oximeter] Pulse Rate [Pulse Oximeter] Respiratory Rate Blood Pressure 95/43 L 88/56 L Blood Pressure [Right Arm] Blood Pressure [Right Upper Arm] Pulse Oximetry 96 95 94 Oxygen Delivery Method 03/19/24 00:02 03/19/24 00:02 03/19/24 00:15 Temperature Pulse Rate 94 94 90 Pulse Rate [Left Pulse Oximeter] Pulse Rate [Pulse Oximeter] Respiratory Rate Blood Pressure 88/56 L 88/56 L Blood Pressure [Right Arm] Blood Pressure [Right Upper Arm] Pulse Oximetry 94 94 94 Oxygen Delivery Method 03/19/24 00:17 03/19/24 00:30 03/19/24 00:32 Temperature Pulse Rate 90 89 92 Pulse Rate [Left Pulse Oximeter] Pulse Rate [Pulse Oximeter] Respiratory Rate Blood Pressure 96/46 L 96/42 L Blood Pressure [Right Arm] Blood Pressure [Right Upper Arm] Pulse Oximetry 94 94 96 Oxygen Delivery Method 03/19/24 00:45 03/19/24 00:47 03/19/24 01:00 Temperature Pulse Rate 93 91 92 Pulse Rate [Left Pulse Oximeter] Pulse Rate [Pulse Oximeter] Respiratory Rate Blood Pressure 94/44 L Blood Pressure [Right Arm] Blood Pressure [Right Upper Arm] Pulse Oximetry 95 95 96 Oxygen Delivery Method 03/19/24 01:15 03/19/24 01:17 03/19/24 01:18 Temperature Pulse Rate 89 88 89 Pulse Rate [Left Pulse Oximeter] Pulse Rate [Pulse Oximeter] Respiratory Rate Blood Pressure 91/52 L 88/52 L Blood Pressure [Right Arm] Blood Pressure [Right Upper Arm] Pulse Oximetry 95 95 96 Oxygen Delivery Method 03/19/24 01:20 03/19/24 01:23 03/19/24 01:30 Temperature Pulse Rate 86 85 Pulse Rate [Left Pulse Oximeter] 86 Pulse Rate [Pulse Oximeter] Respiratory Rate 18 Blood Pressure 101/55 L Blood Pressure [Right Arm] Blood Pressure [Right Upper Arm] 101/55 L Pulse Oximetry 95 96 96 Oxygen Delivery Method Nasal Cannula 03/19/24 01:32 03/19/24 01:45 03/19/24 01:47 Temperature Pulse Rate 87 87 88 Pulse Rate [Left Pulse Oximeter] Pulse Rate [Pulse Oximeter] Respiratory Rate Blood Pressure 97/52 L 91/54 L Blood Pressure [Right Arm] Blood Pressure [Right Upper Arm] Pulse Oximetry 96 96 96 Oxygen Delivery Method 03/19/24 01:48 03/19/24 02:00 03/19/24 02:01 Temperature Pulse Rate 86 86 81 Pulse Rate [Left Pulse Oximeter] Pulse Rate [Pulse Oximeter] Respiratory Rate Blood Pressure 91/57 L 93/64 Blood Pressure [Right Arm] Blood Pressure [Right Upper Arm] Pulse Oximetry 96 97 96 Oxygen Delivery Method 03/19/24 02:03 03/19/24 02:35 03/19/24 03:13 Temperature 98.7 F 97.4 F L Pulse Rate 84 83 Pulse Rate [Left Pulse Oximeter] Pulse Rate [Pulse Oximeter] 89 Respiratory Rate 18 20 Blood Pressure 98/61 103/61 Blood Pressure [Right Arm] 111/63 Blood Pressure [Right Upper Arm] Pulse Oximetry 97 98 92 Oxygen Delivery Method Room Air 03/19/24 03:13 Temperature Pulse Rate Pulse Rate [Left Pulse Oximeter] Pulse Rate [Pulse Oximeter] Respiratory Rate Blood Pressure Blood Pressure [Right Arm] Blood Pressure [Right Upper Arm] Pulse Oximetry Oxygen Delivery Method Room Air Hospitalist - H&P: Result Labs Labs: Short CBC 03/18/24 Range/Units 20:48 WBC 22.65 H (4.50-11.00) K/uL Hgb 12.1 (12.0-16.0) gm/dL Hct 35.4 (33.0-51.0) % Plt Count 115 L (140-440) K/uL BMP 03/18/24 20:48 Sodium 132 L Potassium 3.2 L Chloride 100 Carbon Dioxide 24 BUN 59 H Creatinine 1.3 Glucose 274 H Calcium 8.7 Cardiac Enzymes 03/18/24 03/18/24 Range/Units 20:48 23:09 Troponin I 0.05 H 0.04 (0.01-0.04) ng/mL Liver Function 03/18/24 Range/Units 20:48 Total Bilirubin 1.4 (0.1-1.5) mg/dL AST 63 H (12-35) U/L ALT 39 H (4-35) U/L Alkaline Phosphatase 239 H (40-150) U/L Albumin 3.0 L (3.3-5.0) g/dL Urine 03/18/24 Range/Units 23:00 Urine Color Yellow (Yellow) Urine Appearance Clear (Clear) Urine pH 6.0 (5.0-8.5) Ur Specific [place] 1.010 (1.000-1.030) Urine Protein Negative (Negative) Urine Glucose (UA) 2+ A (Negative) Assessment and Plan Assessment and plan (1) Sepsis: Status: Acute Plan Patient is presenting to emergency department with complaints of body pains, GERD and shaking chills. She is found to have leukocytosis with white count of 22. She was hypertensive on initial arrival requiring 3 L IV fluids. Blood pressure still somewhat softer. Lactate was mildly elevated. No clear source of infection so far. UA is negative though she does have UTI symptoms. CT chest abdomen pelvis is negative for infectious source. Influenza A, B, RSV and SARS-CoV-2 negative. She has no chest pain or abdominal pain. Pt does have mild headache however she says she gets those if she has not eaten properly. no neck stiffness, no photophobia, no altered mental status. Pt is very alert, oriented and providng detailed history. no signs of menengitis noted on exam. # Sepsis # Leukocytosis # Hypotension # shaking chills and rigors - Pt has no clear source of infeciton however does have rigors indicating she may have bacteremia. - f/u blood cultures - cont vanco and zosyn - no signs of menengitis. no fever, AMS, neck stiffnes. # HTN - hold lisionopril and HCTZ due to low bp # Prediabetes -# Hyperglycemia - will check hg A1c and start on sliding scale during hospital course # Depression - resume home meds once verified. # DVT proph: lovenox Total Time Spent Total Time Spent: 60 Telehealth: Statement Statement Telehealth Visit: Today's History and Physical is provided via interactive telehealth by Stacey crawley MD.? Patient is located at [facility].? Provider is located at [facility].? Nursing staff assisted with the patient's exam. The visit being done today meets criteria for a telehealth visit and the patient or patient?s parent/guardian is aware the visit is a telehealth visit. Camera Start Time: 03:39 Camera End Time: 03:55
[2024-03-19] MEDS: PIPERACILLIN/TAZOBACTAM 3.375 GM in 0.9 % SODIUM CHLORIDE Mini-bag 100 ML IVPB ×4 (06:03→23:56)
--- NOTE | 2024-03-19 07:27 | PC.NURSE ---
End of shift note [id number]: Pt alert and oriented x3. Afebrile. Pt denies headache, pain, chest pain, and N/V. Pt reports SOB with exertion. Pt is up SBA, voiding, tolerating a regular diet. Pt reported a small nose bleed, blood was bright red and small amounts were on tissue paper.
[2024-03-19 07:40] LABS: Lactate* 1.1 mmol/L (0.5-1.9)
[2024-03-19 07:46] LABS: Basophils Percent Auto 0.3 % (0.0-3.0); Hemoglobin* 11.4 gm/dL (12.0-16.0); Immature Granulocytes Pct Auto 1.7 %; Lymphocytes Percent Auto 9.9 % (20-44); Mean Corpuscular HGB Conc 34 gm/dL (32-36); Mean Corpuscular Hemoglobin 30 pg (26-34); Mean Corpuscular Volume 90 fL (80-100); Monocytes Percent Auto 8.5 % (0.0-11.0); Neutrophils Percent Auto 78.6 % (42.0-72.0); Platelet Count* 131 K/uL (140-440); RDW Coefficient of Variation % 15.1 % (11.5-15.5); Red Blood Count 3.79 m/uL (4.00-5.20); White Blood Count* 16.83 K/uL (4.50-11.00)
[2024-03-19 07:47] LABS: Slide Review Reflex No
[2024-03-19 07:56] LABS: Albumin* 2.9 g/dL (3.3-5.0); Chloride* 106 mmol/L (96-114); Sodium* 135 mmol/L (135-149)
[2024-03-19 07:57] LABS: Potassium* 3.3 mmol/L (3.6-5.1)
[2024-03-19 07:59] LABS: Alanine Aminotransferase* 38 U/L (4-35); Alkaline Phosphatase* 161 U/L (40-150); Anion Gap 7 mEq/L (7-15); Aspartate Amino Transferase* 50 U/L (12-35); Bilirubin Total* 1.2 mg/dL (0.1-1.5); Blood Urea Nitrogen* 45 mg/dL (7-30); Carbon Dioxide* 22 mmol/L (20-32); Creatinine* 1.2 mg/dL (0.5-1.5); Est. Creatinine Clearance* 34.33; Estimated Glomerular Filt Rate 50 ml/min; Glucose* 131 mg/dL (60-115); Total Protein* 5.9 g/dL (6.0-8.3)
[2024-03-19 08:00] LABS: Calcium* 8.3 mg/dL (8.4-10.6); Magnesium* 2.4 mg/dL (1.5-2.6)
[2024-03-19 08:16] LABS: C Reactive Protein* 20.4 mg/dL (0.5-1.0)
[2024-03-19 09:15] LABS: Legionella pneumo Ag Urine L. pneumo Negative (Negative); S pneumo Ag Urine S. pneumo Negative (Negative)
[2024-03-19] MEDS: ACETAMINOPHEN 500 MG TABLET 1000 MG PO (09:43)
[2024-03-19] MEDS: SODIUM CHLORIDE 0.9 % (FLUSH) 10 ML SYRINGE 5 ML IVF ×2 (10:15→20:53)
[2024-03-19] MEDS: 0.9 % SODIUM CHLORIDE 1000 ml 1,000 ML 125 ML IV ×3 (10:15→21:36)
[2024-03-19 10:59] LABS: Strep A DNA Probe* NOT DETECTED (Not Detectd)
[2024-03-19] MEDS: ONDANSETRON ODT 4 MG TAB PO (11:13)
[2024-03-19] MEDS: 0.9 % SODIUM CHLORIDE 1000 ml 1,000 ML IV (11:46)
[2024-03-19 12:17] LABS: Lipase* 131 U/L (23-300)
--- NOTE | 2024-03-19 12:20 | CRLHL7_ITS ---
For Patients: As a result of the Cures Act, medical imaging exams and procedure reports are released immediately into your electronic medical record. You may view this report before your referring provider. If you have questions, please contact your health care provider. INDICATION: Fever and shortness of breath TECHNIQUE: 1 view chest radiograph COMPARISON: Chest CT 03/18/2024 FINDINGS: Devices: None. Lung volumes are low. New small nodular consolidation in the right lateral midlung. No pleural effusion. No pneumothorax. Heart size is within normal limits for volumes and technique. IMPRESSION: New small consolidation in the right mid lung may be infectious or inflammatory. Dictated by Mayte Whaley MD @ 03/19/2024 1:49:35 PM (Electronically Signed)
[2024-03-19 12:48] LABS: HCO3 VBG 22 mmol/L (21-28); PCO2 VBG 35 mmHG (40-50); pH VBG 7.407 (7.32-7.43)
[2024-03-19 12:52] LABS: PCR FLU A Negative PCR FLU A (Negative); PCR FLU B Negative PCR FLU B (Negative); PCR RSV Negative PCR RSV (Negative); SARS PCR* Negative SARS-CoV-2 (Negative)
--- NOTE | 2024-03-19 13:16 | PM.PRCPDLP ---
Lumbar Puncture Procedure Performed by:: CHRISTELLE Time Seen by Provider: 12:45 Date Seen: 03/19/24 Date of procedure: 03/19/24 Post-op diagnosis: same Consent signed by: Oliver Nicolas Position: sitting Prep: chlorhexidine Anesthesia: 1 % Lidocaine Sedation: none Needle size: other (24ga pencan) Needle length: 3.5 Interspace: L3-4 Number of attempts: 1 Opening pressure: not done Fluids mLs collected: 4 Fluid description: clear Complications: No Patient tolerance: pt tolerated procedure well Procedure performed by: Oliver Nicolas Condition: stable Disposition: no change
[2024-03-19 14:05] LABS: CSF Mononuclear Cells 100 %; CSF Polynuclear Cells 0 %; WBC, CSF 2 Cells/uL
--- NOTE | 2024-03-19 14:09 | PM.IMPN1 ---
Progress Note: A&P Assessment and plan (1) Sepsis: Problem details: -on admission, hypotensive, tachycardic, WBC 22.65, lactate 2.2 -> 2.0 -> 1.1, procalcitonin 60.20 -CT chest abdomen pelvis on admission without acute findings -received 1L LR, 1L NS -continue IV vancomycin and zosyn as initiated in ED -continuing IVF, 3rd bolus given -BCx1 pending, UA unremarkable, UC pending, repeat BC ordered with fever, rapid strep negative -LP completed by anesthesia, CSF labs pending Status: Acute (2) Acute hypoxic respiratory failure: Problem details: -sats 84% on RA, previously not hypoxic, tachypneic -VBG pH 7.407, pCO2 35, PO2 104, HC03 22 -triple swab negative x2 -increasing oxygen needs on nasal cannula -> placed on CPAP -new consolidation noted on repeat CXR c/w CAP -continue oxygen supplementation to maintain saturations >88%, high-flow with CPAP at bedtime and as needed -incentive spirometry, aerobika -RT for pulmonary support Status: Acute (3) Pneumonia: Problem details: -CXR 03/19 shows new small consolidation in the right mid lung -continue IV vancomycin and Zosyn -mucinex, incentive spirometry, aerobika -WBC trending down, procalcitonin trending down, CRP trending down, strep pneumo/Legionella negative Status: Acute (4) Hypertension: Problem details: -holding lisinopril and HCTZ given hypotension in sepsis Status: Acute (5) Type 2 diabetes mellitus: Problem details: -most recent A1c 6.7 -continue Jardiance -glucose checks ACHS, insulin sliding scale Status: Acute (6) Depression: Problem details: -continue Lexapro and bupropion Status: Acute (7) JASWANT (obstructive sleep apnea): Problem details: -continue CPAP Status: Acute (8) Transaminitis: Problem details: -LFTs elevated, previously WNL. Lipase 131. recent vague abdominal pain -history cholecystectomy -CT shows no abnormal biliary duct dilatation -abdominal ultrasound ordered in setting of sepsis Status: Acute (9) Hypokalemia: Problem details: -potassium 3.2 -> 3.3, replace with oral supplement Status: Acute (10) Nephrolith: Problem details: -CT shows 2 small nonobstructing right nephrolith measuring up to 7 mm, no hydronephrosis -renal ultrasound for further evaluation in setting of sepsis, recent incontinence Status: Acute Time Spent With Patient Total time spent: Total time spent caring for the patient today was 90 minutes. This includes time spent for the visit reviewing the chart, time spent during the visit, time spent after the visit and documentation and planning in coordination of care. Subjective Date Seen: 03/19/24 Interval history: Patient is seen this morning with daughter and at bedside. Sitting up on side of bed, looking at phone. Reports feeling quite a bit better other than feeling tired. Has a mild global headache, nothing focal. Denies neck pain or stiffness. Denies chest pain. No SOB. No recent cough or congestion. Has had some PND. Denies ear pain. Right side of throat slightly sore. No recent nausea or vomiting. Last BM was 2 days ago. No diarrhea. Past 4 days increasing fatigue, feverish, chills (rigors) making her muscles sore. Daughter reports she was even a bit delusional last night. This has resolved. Intermittent dyspnea. Headache which has improved today. Abdominal pain which she describes as gas pains. Incontinent of urine yesterday literally urinating with standing. This has since resolved and she can walk several feet to the bathroom to urinate. Perhaps 2 hours after initial exam, patient became febrile 102.1, tachycardic 120-130s, and tachypneic with hypoxia, requiring O2 supplementation. No change in mentation. Exam Narrative: Exam Narrative: PHYSICAL EXAM General: Pleasant, conversant, NAD on initial exam HEENT: Normocephalic, atraumatic, sclera white, EOMI, oral mucosa moist Cardiovascular: RRR, S1S2. No pitting edema Pulmonary: CTA bilaterally without rhonchi, rales, expiratory wheezes. No dyspnea on room air on initial exam Abdominal: Soft, nondistended, NTTP, no focal tenderness, no guarding Neurological: Alert, answering questions appropriately, cranial nerves intact, no focal findings Extremities: No gross joint deformity or swelling. AROMI. Neurovascularly intact Skin: Warm, dry. Const: Vital Signs, click to edit/add: Vital Signs - 24 hr 03/18/24 20:13 03/18/24 20:56 03/18/24 21:00 Temperature 96.0 F L Pulse Rate 100 102 H Pulse Rate [Left P ulse Oximeter] 113 H Pulse Rate [Pulse Oximeter] Respiratory Rate 20 Blood Pressure Blood Pressure [Ri ght Arm] Blood Pressure [Ri ght Upper Arm] 92/53 L Pulse Oximetry 92 90 92 Oxygen Delivery Me thod Nasal Cannula Oxygen Flow Rate Fraction of Inspir ed Oxygen 03/18/24 21:36 03/18/24 21:45 03/18/24 21:54 Temperature Pulse Rate 110 H 106 H 104 H Pulse Rate [Left P ulse Oximeter] Pulse Rate [Pulse Oximeter] Respiratory Rate Blood Pressure 82/42 L Blood Pressure [Ri ght Arm] Blood Pressure [Ri ght Upper Arm] Pulse Oximetry 93 91 93 Oxygen Delivery Me thod Oxygen Flow Rate Fraction of Inspir ed Oxygen 03/18/24 21:59 03/18/24 22:00 03/18/24 22:04 Temperature Pulse Rate 104 H 101 H 104 H Pulse Rate [Left P ulse Oximeter] Pulse Rate [Pulse Oximeter] Respiratory Rate Blood Pressure 93/52 L 99/52 L Blood Pressure [Ri ght Arm] Blood Pressure [Ri ght Upper Arm] Pulse Oximetry 90 93 94 Oxygen Delivery Me thod Oxygen Flow Rate Fraction of Inspir ed Oxygen 03/18/24 22:15 03/18/24 22:17 03/18/24 22:27 Temperature Pulse Rate 100 99 99 Pulse Rate [Left P ulse Oximeter] Pulse Rate [Pulse Oximeter] Respiratory Rate Blood Pressure 88/46 L 89/53 L Blood Pressure [Ri ght Arm] Blood Pressure [Ri ght Upper Arm] Pulse Oximetry 95 94 96 Oxygen Delivery Me thod Oxygen Flow Rate Fraction of Inspir ed Oxygen 03/18/24 22:30 03/18/24 22:32 03/18/24 22:45 Temperature Pulse Rate 94 96 99 Pulse Rate [Left P ulse Oximeter] Pulse Rate [Pulse Oximeter] Respiratory Rate Blood Pressure 94/56 L Blood Pressure [Ri ght Arm] Blood Pressure [Ri ght Upper Arm] Pulse Oximetry 97 96 92 Oxygen Delivery Me thod Oxygen Flow Rate Fraction of Inspir ed Oxygen 03/18/24 22:47 03/18/24 23:22 03/18/24 23:29 Temperature Pulse Rate 98 95 Pulse Rate [Left P ulse Oximeter] Pulse Rate [Pulse Oximeter] Respiratory Rate Blood Pressure 95/53 L 89/55 L Blood Pressure [Ri ght Arm] Blood Pressure [Ri ght Upper Arm] Pulse Oximetry 92 94 Oxygen Delivery Me thod Oxygen Flow Rate Fraction of Inspir ed Oxygen 03/18/24 23:30 03/18/24 23:32 03/18/24 23:45 Temperature Pulse Rate 96 97 94 Pulse Rate [Left P ulse Oximeter] Pulse Rate [Pulse Oximeter] Respiratory Rate Blood Pressure Blood Pressure [Ri ght Arm] Blood Pressure [Ri ght Upper Arm] Pulse Oximetry 94 96 96 Oxygen Delivery Me thod Oxygen Flow Rate Fraction of Inspir ed Oxygen 03/18/24 23:47 03/19/24 00:00 03/19/24 00:02 Temperature Pulse Rate 96 93 94 Pulse Rate [Left P ulse Oximeter] Pulse Rate [Pulse Oximeter] Respiratory Rate Blood Pressure 95/43 L 88/56 L Blood Pressure [Ri ght Arm] Blood Pressure [Ri ght Upper Arm] Pulse Oximetry 96 95 94 Oxygen Delivery Me thod Oxygen Flow Rate Fraction of Inspir ed Oxygen 03/19/24 00:02 03/19/24 00:02 03/19/24 00:15 Temperature Pulse Rate 94 94 90 Pulse Rate [Left P ulse Oximeter] Pulse Rate [Pulse Oximeter] Respiratory Rate Blood Pressure 88/56 L 88/56 L Blood Pressure [Ri ght Arm] Blood Pressure [Ri ght Upper Arm] Pulse Oximetry 94 94 94 Oxygen Delivery Me thod Oxygen Flow Rate Fraction of Inspir ed Oxygen 03/19/24 00:17 03/19/24 00:30 03/19/24 00:32 Temperature Pulse Rate 90 89 92 Pulse Rate [Left P ulse Oximeter] Pulse Rate [Pulse Oximeter] Respiratory Rate Blood Pressure 96/46 L 96/42 L Blood Pressure [Ri ght Arm] Blood Pressure [Ri ght Upper Arm] Pulse Oximetry 94 94 96 Oxygen Delivery Me thod Oxygen Flow Rate Fraction of Inspir ed Oxygen 03/19/24 00:45 03/19/24 00:47 03/19/24 01:00 Temperature Pulse Rate 93 91 92 Pulse Rate [Left P ulse Oximeter] Pulse Rate [Pulse Oximeter] Respiratory Rate Blood Pressure 94/44 L Blood Pressure [Ri ght Arm] Blood Pressure [Ri ght Upper Arm] Pulse Oximetry 95 95 96 Oxygen Delivery Me thod Oxygen Flow Rate Fraction of Inspir ed Oxygen 03/19/24 01:15 03/19/24 01:17 03/19/24 01:18 Temperature Pulse Rate 89 88 89 Pulse Rate [Left P ulse Oximeter] Pulse Rate [Pulse Oximeter] Respiratory Rate Blood Pressure 91/52 L 88/52 L Blood Pressure [Ri ght Arm] Blood Pressure [Ri ght Upper Arm] Pulse Oximetry 95 95 96 Oxygen Delivery Me thod Oxygen Flow Rate Fraction of Inspir ed Oxygen 03/19/24 01:20 03/19/24 01:23 03/19/24 01:30 Temperature Pulse Rate 86 85 Pulse Rate [Left P ulse Oximeter] 86 Pulse Rate [Pulse Oximeter] Respiratory Rate 18 Blood Pressure 101/55 L Blood Pressure [Ri ght Arm] Blood Pressure [Ri ght Upper Arm] 101/55 L Pulse Oximetry 95 96 96 Oxygen Delivery Me thod Nasal Cannula Oxygen Flow Rate Fraction of Inspir ed Oxygen 03/19/24 01:32 03/19/24 01:45 03/19/24 01:47 Temperature Pulse Rate 87 87 88 Pulse Rate [Left P ulse Oximeter] Pulse Rate [Pulse Oximeter] Respiratory Rate Blood Pressure 97/52 L 91/54 L Blood Pressure [Ri ght Arm] Blood Pressure [Ri ght Upper Arm] Pulse Oximetry 96 96 96 Oxygen Delivery Me thod Oxygen Flow Rate Fraction of Inspir ed Oxygen 03/19/24 01:48 03/19/24 02:00 03/19/24 02:01 Temperature Pulse Rate 86 86 81 Pulse Rate [Left P ulse Oximeter] Pulse Rate [Pulse Oximeter] Respiratory Rate Blood Pressure 91/57 L 93/64 Blood Pressure [Ri ght Arm] Blood Pressure [Ri ght Upper Arm] Pulse Oximetry 96 97 96 Oxygen Delivery Me thod Oxygen Flow Rate Fraction of Inspir ed Oxygen 03/19/24 02:03 03/19/24 02:35 03/19/24 03:13 Temperature 98.7 F 97.4 F L Pulse Rate 84 83 Pulse Rate [Left P ulse Oximeter] Pulse Rate [Pulse Oximeter] 89 Respiratory Rate 18 20 Blood Pressure 98/61 103/61 Blood Pressure [Ri ght Arm] 111/63 Blood Pressure [Ri ght Upper Arm] Pulse Oximetry 97 98 92 Oxygen Delivery Me thod Room Air Oxygen Flow Rate Fraction of Inspir ed Oxygen 03/19/24 03:13 03/19/24 06:06 03/19/24 11:21 Temperature 97.6 F 102.0 F H Pulse Rate 131 H Pulse Rate [Left P ulse Oximeter] Pulse Rate [Pulse Oximeter] 84 Respiratory Rate 20 30 H Blood Pressure 127/63 Blood Pressure [Ri ght Arm] 106/74 Blood Pressure [Ri ght Upper Arm] Pulse Oximetry 92 90 Oxygen Delivery Me thod Room Air Room Air Oxygen Flow Rate Fraction of Inspir ed Oxygen 03/19/24 12:00 03/19/24 12:17 03/19/24 12:28 Temperature Pulse Rate Pulse Rate [Left P ulse Oximeter] Pulse Rate [Pulse Oximeter] Respiratory Rate 30 H 30 H 22 Blood Pressure Blood Pressure [Ri ght Arm] Blood Pressure [Ri ght Upper Arm] Pulse Oximetry 84 L 30 L Oxygen Delivery Me thod OxyMask OxyMask Oxygen Flow Rate 4 10 Fraction of Inspir ed Oxygen 50 70 03/19/24 12:55 Temperature 97.0 F L Pulse Rate Pulse Rate [Left P ulse Oximeter] Pulse Rate [Pulse Oximeter] 122 H Respiratory Rate 32 H Blood Pressure Blood Pressure [Ri ght Arm] 117/62 Blood Pressure [Ri ght Upper Arm] Pulse Oximetry 90 Oxygen Delivery Me thod Oxygen Flow Rate Fraction of Inspir ed Oxygen Labs Labs: Laboratory Results - last 24 hr 03/18/24 03/18/24 03/18/24 20:25 20:48 21:08 WBC 22.65 H RBC 4.00 Hgb 12.1 Hct 35.4 MCV 89 MCH 30 MCHC 34 RDW Coeff of Rikki 14.6 Plt Count 115 L Neut % (Auto) 86.0 H Lymph % (Auto) 4.0 L [place] % (Auto) 8.0 Eos % (Auto) 0.3 Baso % (Auto) 0.2 Neut # (Auto) 19.50 H Lymph # (Auto) 0.90 [place] # (Auto) 1.80 H Eos # (Auto) 0.10 Baso # (Auto) 0.00 Abs Immat Gran (auto) 0.30 Imm/Tot Granulo (auto) 1.5 VBG pH VBG pCO2 VBG pO2 VBG HCO3 Sodium 132 L Potassium 3.2 L Chloride 100 Carbon Dioxide 24 Anion Gap 8 BUN 59 H Creatinine 1.3 Estimated Creat Clear 31.69 Estimated GFR 45 Glucose 274 H Lactate 2.2 H Calcium 8.7 Magnesium 2.2 Total Bilirubin 1.4 AST 63 H ALT 39 H Alkaline Phosphatase 239 H Troponin I 0.05 H C-Reactive Protein 22.6 H NT-Pro-B Natriuret Pep 1860 Total Protein 5.8 L Albumin 3.0 L Lipase Procalcitonin 60.20 H Urine Color Urine Appearance Urine pH Ur Specific Clio Urine Protein Urine Glucose (UA) Urine Ketones Urine Blood Urine Nitrite Urine Bilirubin Urine Urobilinogen Ur Leukocyte Esterase Urine RBC Urine WBC Ur Squamous Epith Cells Urine Bacteria Urine L. pneumophilia Ag Urine Strep pneumoniae Ag SARS-CoV-2 (PCR) Negative SARS-CoV-2 Influenza Type A (PCR) Negative PCR FLU A Influenza Type B (PCR) Negative PCR FLU B RSV (PCR) Negative PCR RSV Group A Strep DNA Lab Acknowledgement Test Added 03/18/24 03/18/24 03/18/24 23:00 23:09 Unknown WBC RBC Hgb Hct MCV MCH MCHC RDW Coeff of Rikki Plt Count Neut % (Auto) Lymph % (Auto) [place] % (Auto) Eos % (Auto) Baso % (Auto) Neut # (Auto) Lymph # (Auto) [place] # (Auto) Eos # (Auto) Baso # (Auto) Abs Immat Gran (auto) Imm/Tot Granulo (auto) VBG pH VBG pCO2 VBG pO2 VBG HCO3 Sodium Potassium Chloride Carbon Dioxide Anion Gap BUN Creatinine Estimated Creat Clear Estimated GFR Glucose Lactate 2.0 H Calcium Magnesium Total Bilirubin AST ALT Alkaline Phosphatase Troponin I 0.04 C-Reactive Protein NT-Pro-B Natriuret Pep Total Protein Albumin Lipase Procalcitonin Urine Color Yellow Urine Appearance Clear Urine pH 6.0 Ur Specific Clio 1.010 Urine Protein Negative Urine Glucose (UA) 2+ A Urine Ketones Negative Urine Blood Negative Urine Nitrite Negative Urine Bilirubin Negative Urine Urobilinogen 4.0 A Ur Leukocyte Esterase Negative Urine RBC 0-2 Urine WBC 0-2 Ur Squamous Epith Cells None Urine Bacteria None Urine L. pneumophilia Ag Urine Strep pneumoniae Ag SARS-CoV-2 (PCR) Influenza Type A (PCR) Influenza Type B (PCR) RSV (PCR) Group A Strep DNA Lab Acknowledgement 03/19/24 03/19/24 03/19/24 07:35 07:43 07:54 WBC 16.83 H RBC 3.79 L Hgb 11.4 L Hct 34.0 MCV 90 MCH 30 MCHC 34 RDW Coeff of Rikki 15.1 Plt Count 131 L Neut % (Auto) 78.6 H Lymph % (Auto) 9.9 L [place] % (Auto) 8.5 Eos % (Auto) 1.0 Baso % (Auto) 0.3 Neut # (Auto) 13.20 H Lymph # (Auto) 1.70 [place] # (Auto) 1.40 H Eos # (Auto) 0.20 Baso # (Auto) 0.10 Abs Immat Gran (auto) 0.30 Imm/Tot Granulo (auto) 1.7 VBG pH VBG pCO2 VBG pO2 VBG HCO3 Sodium 135 Potassium 3.3 L Chloride 106 Carbon Dioxide 22 Anion Gap 7 BUN 45 H Creatinine 1.2 Estimated Creat Clear 34.33 Estimated GFR 50 Glucose 131 H Lactate 1.1 Calcium 8.3 L Magnesium 2.4 Total Bilirubin 1.2 AST 50 H ALT 38 H Alkaline Phosphatase 161 H Troponin I C-Reactive Protein 20.4 H NT-Pro-B Natriuret Pep Total Protein 5.9 L Albumin 2.9 L Lipase 131 Procalcitonin 43.90 H Urine Color Urine Appearance Urine pH Ur Specific Clio Urine Protein Urine Glucose (UA) Urine Ketones Urine Blood Urine Nitrite Urine Bilirubin Urine Urobilinogen Ur Leukocyte Esterase Urine RBC Urine WBC Ur Squamous Epith Cells Urine Bacteria Urine L. pneumophilia Ag L. pneumo Negative Urine Strep pneumoniae Ag S. pneumo Negative SARS-CoV-2 (PCR) Influenza Type A (PCR) Influenza Type B (PCR) RSV (PCR) Group A Strep DNA Lab Acknowledgement Test Added 03/19/24 03/19/24 03/19/24 10:05 11:51 12:05 WBC RBC Hgb Hct MCV MCH MCHC RDW Coeff of Rikki Plt Count Neut % (Auto) Lymph % (Auto) [place] % (Auto) Eos % (Auto) Baso % (Auto) Neut # (Auto) Lymph # (Auto) [place] # (Auto) Eos # (Auto) Baso # (Auto) Abs Immat Gran (auto) Imm/Tot Granulo (auto) VBG pH VBG pCO2 VBG pO2 VBG HCO3 Sodium Potassium Chloride Carbon Dioxide Anion Gap BUN Creatinine Estimated Creat Clear Estimated GFR Glucose Lactate Calcium Magnesium Total Bilirubin AST ALT Alkaline Phosphatase Troponin I C-Reactive Protein NT-Pro-B Natriuret Pep Total Protein Albumin Lipase Procalcitonin Urine Color Urine Appearance Urine pH Ur Specific Clio Urine Protein Urine Glucose (UA) Urine Ketones Urine Blood Urine Nitrite Urine Bilirubin Urine Urobilinogen Ur Leukocyte Esterase Urine RBC Urine WBC Ur Squamous Epith Cells Urine Bacteria Urine L. pneumophilia Ag Urine Strep pneumoniae Ag SARS-CoV-2 (PCR) Negative SARS-CoV-2 Influenza Type A (PCR) Negative PCR FLU A Influenza Type B (PCR) Negative PCR FLU B RSV (PCR) Negative PCR RSV Group A Strep DNA NOT DETECTED Lab Acknowledgement Test Added 03/19/24 12:36 WBC RBC Hgb Hct MCV MCH MCHC RDW Coeff of Rikki Plt Count Neut % (Auto) Lymph % (Auto) [place] % (Auto) Eos % (Auto) Baso % (Auto) Neut # (Auto) Lymph # (Auto) [place] # (Auto) Eos # (Auto) Baso # (Auto) Abs Immat Gran (auto) Imm/Tot Granulo (auto) VBG pH 7.407 VBG pCO2 35 L VBG pO2 104.0 H VBG HCO3 22 Sodium Potassium Chloride Carbon Dioxide Anion Gap BUN Creatinine Estimated Creat Clear Estimated GFR Glucose Lactate Calcium Magnesium Total Bilirubin AST ALT Alkaline Phosphatase Troponin I C-Reactive Protein NT-Pro-B Natriuret Pep Total Protein Albumin Lipase Procalcitonin Urine Color Urine Appearance Urine pH Ur Specific Clio Urine Protein Urine Glucose (UA) Urine Ketones Urine Blood Urine Nitrite Urine Bilirubin Urine Urobilinogen Ur Leukocyte Esterase Urine RBC Urine WBC Ur Squamous Epith Cells Urine Bacteria Urine L. pneumophilia Ag Urine Strep pneumoniae Ag SARS-CoV-2 (PCR) Influenza Type A (PCR) Influenza Type B (PCR) RSV (PCR) Group A Strep DNA Lab Acknowledgement
[2024-03-19 14:57] LABS: RBC, CSF 2 Cells/uL
--- NOTE | 2024-03-19 15:00 | CRLHL7_ITS ---
For Patients: As a result of the Century Cures Act, medical imaging exams and procedure reports are released immediately into your electronic medical record. You may view this report before your referring provider. If you have questions, please contact your health care provider. INDICATION: Elevated LFTs, nephrolith per CT TECHNIQUE: Ultrasound abdomen complete. Sonographic images of the entire abdomen were obtained using denney-scale and color Doppler. COMPARISON: CT abdomen and pelvis 03/18/2024. FINDINGS: Evaluation limited by patient pain and bowel gas. Liver: Echogenic liver measuring 18.7 centimeters No definite mass, though evaluation is limited. Gallbladder: Cholecystectomy. Common bile duct: 5 mm. Pancreas: Mildly echogenic appearance of the pancreas, which can be seen with fatty infiltration. Evaluation the pancreatic tail is limited by bowel gas. Spleen: Normal in size and appearance. Kidneys: Both kidneys are normal in size. Visualization is limited due to bowel gas. Vasculature: Proximal abdominal aorta and IVC are normal in caliber. IMPRESSION: Echogenic liver, which can be seen with fatty liver. Kidneys are suboptimally evaluated on this exam. Dictated by Marilu Hensley MD @ 03/19/2024 6:52:03 PM (Electronically Signed)
--- NOTE | 2024-03-19 15:13 | PC.NURSE ---
Shift Note - RN took over pt care at approximately 0730. Pt alert, oriented, and sitting on edge of bed. Observed to eat breakfast. Shortly after family arrived, pt reported feeling cold and was observed to shiver persistently and reported chest pain from shivering. No temperature was noted at the time. RN added bear hugger for warmth and provided pt with emotional support related to her emotional state. Pt was observed to become tachypneic and tearful. RN coached pt on breathing techniques and applied oxygen via nasal cannula for saturation support. Nasal cannula later switched to oxymask with pt reporting increased comfort and ease of breathing and RN measured saturation at 90% and above. MD made aware of pt state, no new orders given. Pt able to stand and pivot to bedside commode with 1-2 assist. Pt reported feeling a headache, given medication per MAR for increased comfort. Later in shift, pt reported feeling too hot and again became tachypneic. MD made aware of pt change, home cpap applied with supervision of RT and O2 bled in to assist with O2 saturation. Pt temperature recorded, pt given medication per MAR and MD new order. Pt condition remained fragile, RN completed handoff to CCU trained RN.
[2024-03-19 15:17] LABS: Glucose, CSF* 89 mg/dL (40-70); Total Protein, CSF 58 Mg/dL (15-45)
[2024-03-19 15:22] LABS: Appearance CSF Clear (Clear); Color CSF Colorless (Colorless)
[2024-03-19 15:23] LABS: Total Volume 4.5 mL (0-6)
[2024-03-19] MEDS: INSULIN ASPART 100 UNIT/ML SUBCUT ×2 (17:58→20:55)
[2024-03-19] MEDS: guaiFENesin 600 MG TAB.ER.12H PO ×2 (17:59→20:50)
--- NOTE | 2024-03-19 19:04 | PC.NURSE ---
Nursing Care Hours: [id number] Pt this shift tachypneic, tachycardic, on high flow maintaining spo2 saturations. Decreased BP at 1500, repeat x3 Q20min, and BP increased and stabilized. Continue Q2H VS. Pt sleeping with CPAP running, 10L O2 bleeding in. Post ultrasound, pt had assist x2 to BSC, tolerated well, voided. Then pivot transfer to recliner. Pt states i feel so good just sitting up. Switched from high flow to NC at 3.5L while eating, spo2 remained above 90%. By end of shift, tele showing NSR. Pt still SOB with talking. One unit given per sliding scale.
[2024-03-19] MEDS: buPROPion HCL SR 150 MG TAB PO (20:50)
[2024-03-19] MEDS: ENOXAPARIN 40 MG/0.4 ML INJ SUBCUT (20:51)
[2024-03-19] MEDS: VANCOMYCIN 1.75 GM/350 ML 1.75 GM/350 ML PIGGYBACK IVPB (23:56)
[2024-03-20] VITALS (28 sets, daily range): BP systolic 95–131; BP diastolic 53–71; PULSE 83–125; RESP 24–38; TEMP 35.9–37.5; O2SAT 85–94
--- NOTE | 2024-03-20 | CRLHL7_ITS ---
For Patients: As a result of the Century Cures Act, medical imaging exams and procedure reports are released immediately into your electronic medical record. You may view this report before your referring provider. If you have questions, please contact your health care provider. INDICATION: Sepsis, hypoxia, tachypnea, right upper quadrant pain. TECHNIQUE: CT chest PE was acquired with 95 cc Isovue 370 IV contrast. COMPARISON: CT chest February 2024. FINDINGS: Heart and vasculature: Mild cardiomegaly without pericardial effusion. Thoracic aorta and pulmonary artery are of normal caliber. No evidence of pulmonary embolism. Mild coronary artery calcification is seen. Lungs and pleura: There is interval increase in the multifocal ground-glass opacities, most pronounced into the right upper lobe. Diffuse interlobular septal thickening is present. Minimal bilateral pleural effusion. The central airways are patent. No concerning mass or nodule. Lymph nodes/mediastinum: Few prominent mediastinal lymph nodes are noted, largest in the right paratracheal location measures about 13 x 12 millimeter. One of the lymph node in subcarinal location measures about 14 x 13 millimeter. Few subcentimeter sized hilar lymph nodes are also present. Upper abdomen: Dictated separately on the same day CT abdomen and pelvis. Bones: Multilevel moderate to advanced degenerative changes of the spine. Healed bilateral rib fractures. IMPRESSION: 1. No pulmonary embolism. 2. Multifocal ground-glass opacities, most pronounced in the right upper lobe with interlobular septal thickening. Minimal bilateral effusion. Findings are concerning for interstitial pulmonary edema. Atypical infectious-inflammatory infiltrates would have a similar appearance in the appropriate clinical settings. 3. Reactive subcentimeter sized mediastinal lymph nodes. Please note that all CT scans at this facility use dose modulation, iterative reconstruction, and/or weight-based dosing when appropriate to reduce radiation dose to as low as reasonably achievable. Dictated by Santy Last MD @ 03/20/2024 11:57:41 AM (Electronically Signed)
[2024-03-20] MEDS: ACETAMINOPHEN 500 MG TABLET 1000 MG PO ×2 (01:41→11:35)
[2024-03-20] MEDS: PIPERACILLIN/TAZOBACTAM 3.375 GM in 0.9 % SODIUM CHLORIDE Mini-bag 100 ML IVPB ×2 (06:27→11:47)
[2024-03-20] MEDS: 0.9 % SODIUM CHLORIDE 1000 ml 1,000 ML 125 ML IV (06:27)
[2024-03-20 06:38] LABS: Hematocrit 35.3 % (33.0-51.0); Hemoglobin* 11.6 gm/dL (12.0-16.0); Mean Corpuscular HGB Conc 33 gm/dL (32-36); Mean Corpuscular Hemoglobin 30 pg (26-34); Mean Corpuscular Volume 92 fL (80-100); Platelet Count* 109 K/uL (140-440); Red Blood Count 3.86 m/uL (4.00-5.20); White Blood Count* 22.34 K/uL (4.50-11.00)
[2024-03-20 06:39] LABS: Slide Review Reflex No
[2024-03-20 06:44] LABS: Albumin* 2.9 g/dL (3.3-5.0); Chloride* 105 mmol/L (96-114)
[2024-03-20 06:45] LABS: Potassium* 3.7 mmol/L (3.6-5.1); Sodium* 137 mmol/L (135-149)
[2024-03-20 06:47] LABS: Anion Gap 9 mEq/L (7-15); Aspartate Amino Transferase* 45 U/L (12-35); Bilirubin Direct* 1.5 mg/dL (0.0-0.5); Bilirubin Total* 2.3 mg/dL (0.1-1.5); Carbon Dioxide* 23 mmol/L (20-32); Creatinine* 1.3 mg/dL (0.5-1.5); Est. Creatinine Clearance* 31.69; Estimated Glomerular Filt Rate 45 ml/min; Total Protein* 5.8 g/dL (6.0-8.3)
[2024-03-20 06:48] LABS: Alanine Aminotransferase* 37 U/L (4-35); Alkaline Phosphatase* 204 U/L (40-150); Blood Urea Nitrogen* 38 mg/dL (7-30); Calcium* 7.9 mg/dL (8.4-10.6); Glucose* 159 mg/dL (60-115)
[2024-03-20 07:25] LABS: C Reactive Protein* 22.8 mg/dL (0.5-1.0)
--- NOTE | 2024-03-20 07:26 | PC.NURSE ---
-: pleasant and cooperative. A x 1 gb and walker, pivot transfers only. Pt reported feeling dizzy with a headache, pt related this to lumbar puncture, tylenol given, offered relief. At start of shift pt crying out stating how cold she is, warm blankets applied, pt request michelle hugger - applied for short period of time. Pt up between bed and chair throughout shift. Pt became diaphoretic and was stating she was feeling too hot, gown & linens changed, cool cloth was placed to forehead, offered relief. Pt afebile throughout shift. Pt on cpap with 3.5L O2 bleeding in, titrated up to 4L d/t sats in the mid 80s while at rest. HiFlow not used this shift. Pt took off CPAP a few times, quickly desats into the high 70s/low 80s, documentation writer reminded pt to keep O2 on at all times.
[2024-03-20 08:13] LABS: HCO3 VBG 22 mmol/L (21-28); PCO2 VBG 39 mmHG (40-50); PO2 VBG 47.7 mmHG (25-47); pH VBG 7.358 (7.32-7.43)
[2024-03-20 08:14] LABS: Lactate* 0.9 mmol/L (0.5-1.9)
[2024-03-20] MEDS: guaiFENesin 600 MG TAB.ER.12H PO ×2 (09:38→20:46)
[2024-03-20] MEDS: ESCITALOPRAM 10 MG TABLET 5 MG PO (09:38)
[2024-03-20] MEDS: buPROPion HCL SR 150 MG TAB PO ×2 (09:38→20:46)
[2024-03-20] MEDS: EMPAGLIFLOZIN 10 MG TABLET PO (09:39)
[2024-03-20] MEDS: SODIUM CHLORIDE 0.9 % (FLUSH) 10 ML SYRINGE 5 ML IVF ×3 (09:39→23:44)
--- NOTE | 2024-03-20 09:53 | PM.GSCN ---
History of Present Illness Consult details Date Seen: 03/20/24 Consult date: 03/20/24 Narrative: The patient is a 68-year-old female with history significant for obesity and pre diabetes who presented to the emergency department with weakness and chills. Prior to admission she had nausea and vomiting as well as urinary incontinence and headaches. She had not been able to eat much because of the nausea. The patient initially denied abdominal pain, however the patient's daughter states that her main complaint was that she was having significant abdominal pain. Patient states that, yes when she got the ultrasound yesterday, she had significant abdominal pain with pressure. Currently she denies abdominal pain. She states that ?this all started with constipation. ? She states that she has not had a bowel movement since coming into the hospital but has passed gas. In the 2 days prior to admission she states that she did have bowel movements but they were small. When she arrived to the ER, was found to have a septic type picture with an elevated white blood cell count of 22 and lactate of 2.2. UA was negative. Influenza a, B, RSV and COVID were negative. CTA of the chest did not show a pulmonary embolism. CT of the abdomen was unremarkable for acute findings. She was admitted and started on empiric antibiotics. She underwent lumbar puncture. She had worsening symptoms and a chest x-ray showed possible right middle lobe pneumonia. Blood culture grew E coli. White blood cell count today worsened up to 22 after falling to 16 yesterday. Lactate remains normal, however bilirubin has increased. The patient has a history of cholecystectomy without evidence of biliary dilatation on imaging. I was asked to weigh in on her elevated liver tests. [facility] Medical History (Updated 03/19/24 @ 14:52 by Gaye Schaefer PA-C) JASWANT (obstructive sleep apnea) ?G47.33 - Obstructive sleep apnea (adult) (pediatric) (ICD-10) Depression ?F32.A - Depression, unspecified (ICD-10) Type 2 diabetes mellitus ?E11.9 - Type 2 diabetes mellitus without complications (ICD-10) Morbid obesity ?E66.01 - Morbid (severe) obesity due to excess calories (ICD-10) Hypertension ?I10 - Essential (primary) hypertension (ICD-10) Social History What is your current living situation?: I presently have a place to live Problems where you live: no known problems Problems where you live details: no known problems In the past 12 months, utilities in danger of being shut off: no In past 12 months, lack of transportation kept you from medical appts, meetings, work, or getting things needed for daily living: no In the past 12 mos, have been you worried that your food would run out before you had money to buy more?: never true In the past 12 mos, the food you bought just didn't last and you didn't have money to buy more?: never true Smoking Status: Never smoker Do you use any of these nicotine containing products: None Second hand tobacco smoke exposure: No How often do you have a drink containing alcohol: never How often do you have six or more drinks on one occasion: Less than monthly AUDIT-C Alcohol total score: 1 Non-prescribed substance use: denies use Caffeine: Yes (Coffee) How often does anyone, including family, friends and others, physically hurt you: never How often does anyone, including family, friends and others, insult or talk down to you: never How often does anyone, including family, friends and others, threaten you with harm: never How often does anyone, including family, friends and others, scream or curse at you: never Meds Home Medications and Allergies Home Medications ?Medication ?Instructions ?Recorded ?Confirmed ?Type bupropion HCl 150 mg tablet,12 hr 150 mg PO BID 03/19/24 03/19/24 History sustained-release empagliflozin 10 mg tablet 10 mg PO DAILY 03/19/24 03/19/24 History (Jardiance) escitalopram oxalate 5 mg tablet 5 mg PO DAILY 03/19/24 03/19/24 History hydrochlorothiazide 12.5 mg tablet 12.5 mg PO DAILY 03/19/24 03/19/24 History lisinopril 10 mg tablet 10 mg PO DAILY 03/19/24 03/19/24 History Allergies Allergy/AdvReac Type Severity Reaction Status Date / Time No Known Drug Allergies Allergy Verified 03/18/24 20:18 Exam Narrative: Exam Narrative: General appearance: Alert, cooperative. Tachypneic. Eyes: PERRLA, eye lids clear, and sclera white HENT Head: Normocephalic Ears: External ears normal Pulmonary: Breathing nonlabored on room air Cardiovascular Heart: Regular rate Extremities: warm and well perfused Gastrointestinal Abdominal: Protuberant. Right upper quadrant scar from cholecystectomy noted. She is nontender. Negative Coker sign Skin: Normal skin color, texture, and turgor. Neurologic: No focal deficits Psychiatric: Alert, oriented, cooperative, normal affect. Const: Vital Signs, click to edit/add: Vital Signs - 24 hr 03/19/24 11:21 03/19/24 12:00 03/19/24 12:17 Temperature 102.0 F H Pulse Rate 131 H Pulse Rate [Pulse Oximeter] Respiratory Rate 30 H 30 H 30 H Blood Pressure 127/63 Blood Pressure [R FA] Blood Pressure [Ri ght Arm] Pulse Oximetry 90 84 L 30 L Oxygen Delivery Me thod OxyMask OxyMask Oxygen Flow Rate 4 10 Fraction of Inspir ed Oxygen 50 70 03/19/24 12:28 03/19/24 12:55 03/19/24 15:00 Temperature 97.0 F L Pulse Rate Pulse Rate [Pulse Oximeter] 122 H 105 H Respiratory Rate 22 32 H 38 H Blood Pressure Blood Pressure [R FA] Blood Pressure [Ri ght Arm] 117/62 Pulse Oximetry 90 Oxygen Delivery Me thod Oxygen Flow Rate Fraction of Inspir ed Oxygen 03/19/24 15:00 03/19/24 15:00 03/19/24 15:00 Temperature 97.1 F L Pulse Rate 104 H Pulse Rate [Pulse Oximeter] 105 H Respiratory Rate 38 H 38 H Blood Pressure Blood Pressure [R FA] 92/54 L Blood Pressure [Ri ght Arm] Pulse Oximetry 87 L 89 Oxygen Delivery Me thod High Flow Nasal Ca nnula High Flow Nasal Ca nnula Oxygen Flow Rate 35 35 Fraction of Inspir ed Oxygen 40 40 03/19/24 17:00 03/19/24 18:44 03/19/24 19:19 Temperature 97.4 F L Pulse Rate 97 Pulse Rate [Pulse Oximeter] 99 98 Respiratory Rate 20 Blood Pressure Blood Pressure [R FA] 100/54 L Blood Pressure [Ri ght Arm] 112/57 L Pulse Oximetry 89 93 Oxygen Delivery Me thod High Flow Nasal Ca nnula High Flow Nasal Ca nnula Oxygen Flow Rate 35 35 Fraction of Inspir ed Oxygen 40 03/19/24 19:27 03/19/24 19:29 03/19/24 19:50 Temperature Pulse Rate Pulse Rate [Pulse Oximeter] 98 Respiratory Rate 20 20 Blood Pressure Blood Pressure [R FA] Blood Pressure [Ri ght Arm] Pulse Oximetry 93 Oxygen Delivery Me thod High Flow Nasal Ca nnula Oxygen Flow Rate 35 35 Fraction of Inspir ed Oxygen 40 40 03/19/24 21:02 03/19/24 22:38 03/19/24 23:10 Temperature 98.1 F 97.3 F L Pulse Rate 94 Pulse Rate [Pulse Oximeter] 94 107 H Respiratory Rate 20 36 H Blood Pressure Blood Pressure [R FA] 137/62 Blood Pressure [Ri ght Arm] 108/71 Pulse Oximetry 90 90 Oxygen Delivery Me thod CPAP CPAP Oxygen Flow Rate 3.5 3.5 Fraction of Inspir ed Oxygen 03/19/24 23:30 03/20/24 00:00 03/20/24 02:00 Temperature 99.5 F Pulse Rate Pulse Rate [Pulse Oximeter] 116 H 113 H Respiratory Rate 36 H 38 H Blood Pressure Blood Pressure [R FA] 131/71 112/66 Blood Pressure [Ri ght Arm] Pulse Oximetry 90 94 91 Oxygen Delivery Me thod CPAP CPAP CPAP Oxygen Flow Rate 3.5 3.5 3.5 Fraction of Inspir ed Oxygen 03/20/24 02:39 03/20/24 04:00 03/20/24 05:00 Temperature 98.5 F Pulse Rate 109 H Pulse Rate [Pulse Oximeter] 100 Respiratory Rate 34 H 38 H Blood Pressure Blood Pressure [R FA] Blood Pressure [Ri ght Arm] 95/54 L Pulse Oximetry 91 85 L Oxygen Delivery Me thod CPAP CPAP Oxygen Flow Rate 3.5 3.5 Fraction of Inspir ed Oxygen 03/20/24 05:08 03/20/24 05:08 03/20/24 06:00 Temperature 96.6 F L Pulse Rate Pulse Rate [Pulse Oximeter] 97 96 Respiratory Rate 38 H 38 H 36 H Blood Pressure Blood Pressure [R FA] Blood Pressure [Ri ght Arm] 102/61 108/59 L Pulse Oximetry 86 L 87 L 89 Oxygen Delivery Me thod CPAP CPAP CPAP Oxygen Flow Rate 4 4 4 Fraction of Inspir ed Oxygen 03/20/24 06:57 03/20/24 08:00 03/20/24 08:00 Temperature 97.2 F L Pulse Rate 91 Pulse Rate [Pulse Oximeter] 90 Respiratory Rate 26 H Blood Pressure Blood Pressure [R FA] 110/69 Blood Pressure [Ri ght Arm] Pulse Oximetry 90 Oxygen Delivery Me thod CPAP Oxygen Flow Rate 4 Fraction of Inspir ed Oxygen 35 03/20/24 08:46 03/20/24 08:51 03/20/24 09:12 Temperature Pulse Rate Pulse Rate [Pulse Oximeter] 96 Respiratory Rate 26 H 28 H Blood Pressure Blood Pressure [R FA] Blood Pressure [Ri ght Arm] Pulse Oximetry 90 Oxygen Delivery Me thod High Flow Nasal Ca nnula Oxygen Flow Rate 35 Fraction of Inspir ed Oxygen 35 35 03/20/24 09:44 Temperature Pulse Rate Pulse Rate [Pulse Oximeter] Respiratory Rate Blood Pressure Blood Pressure [R FA] Blood Pressure [Ri ght Arm] Pulse Oximetry Oxygen Delivery Me thod Oxygen Flow Rate 35 Fraction of Inspir ed Oxygen 40 Results Labs Labs: White blood cell count today is 22 from 16 from 22. Platelets are 109 from 131 for 115 Total bilirubin today is 2.3 from 1.2 Direct bilirubin is 1.5 AST is 45 from 50 ALT is 37 from 38 Alkaline phosphatases to a 4 from 161 CRP is 22 from [address] scan report/results: report reviewed and image reviewed Additional studies: CT abdomen 03/18: IMPRESSION: 1. No acute findings within the abdomen or pelvis. 2. Few nonacute findings, as above. Dictated by Nghia Moreno MD @ 03/18/2024 10:40:22 PM Ultrasound abdomen 03/19/2024: Common bile duct 5 mm IMPRESSION: Echogenic liver, which can be seen with fatty liver. Kidneys are suboptimally evaluated on this exam. Dictated by Marilu Hensley MD @ 03/19/2024 6:52:[address] abdomen pelvis : IMPRESSION: 1. No acute findings within the abdomen or pelvis. Dictated by Nghia Moreno MD @ 03/18/2024 10:40:22 PM Progress Note:A&P Assessment and plan (1) Transaminitis: Status: Acute (2) Acute hypoxic respiratory failure: Status: Acute (3) Pneumonia: Status: Acute (4) JASWANT (obstructive sleep apnea): Status: Acute (5) Type 2 diabetes mellitus: Status: Acute Plan The patient is a 68-year-old female with sepsis from likely pulmonary source, however, were also with E coli bacteremia and elevated LFTs in the setting of prior cholecystectomy. -curbside consult with GI recommended MRCP; however patient cannot go into MRI with high-flow nasal cannula and likely would not be stable enough from a respiratory standpoint for MRI. -LFTs are minimally elevated, would continue to trend. -patient denies any abdominal pain today, however reasonable to repeat scans given prior worsening clinical picture and looking for source of E coli in blood. -patient and daughter updated on the plan.
--- NOTE | 2024-03-20 10:19 | CRLHL7_ITS ---
For Patients: As a result of the Century Cures Act, medical imaging exams and procedure reports are released immediately into your electronic medical record. You may view this report before your referring provider. If you have questions, please contact your health care provider. INDICATION: Sepsis, hypoxia, tachypnea, right quadrant pain. TECHNIQUE: CT abdomen and pelvis acquired with 95 cc Isovue 370 IV contrast. COMPARISON: CT abdomen and pelvis February 2024 FINDINGS: Lower chest: Minimal bilateral pleural effusion and scattered ground-glass opacity with interlobular septal thickening. Liver: Normal in size and attenuation. No suspicious masses. Gallbladder and bile ducts: Status post cholecystectomy without biliary duct dilatation. Pancreas: Moderate fatty replacement of the pancreas. No adjacent inflammatory changes or duct dilatation. Spleen: Normal in size. No masses. Adrenal glands: No suspicious mass. Kidneys: Bilateral kidneys are normal in size with symmetric enhancement. Redemonstration of nonobstructing right-sided nephrolithiasis measuring about seven and 9 millimeter, similar to previous exam. No hydronephrosis. No left-sided nephrolithiasis. Nonspecific bilateral perinephric fat stranding. Suggestion of small cyst at the lower pole of right kidney. GI tract: No findings of bowel obstruction. Normal appendix. Colonic diverticulosis without diverticulitis. Vasculature: Abdominal aorta is normal in caliber. Lymph nodes: No lymphadenopathy. Peritoneum/Abdominal Wall: No free air or significant free fluid. Diastasis of recti. Pelvis: Uterus is surgically absent. Bones: Grade 1 anterolisthesis of L5 over S1, unchanged. Multilevel degenerative changes of the spine. IMPRESSION: 1. No acute findings in the abdomen and pelvis. 2. Redemonstration of nonobstructing right nephrolithiasis. 3. Colonic diverticulosis without diverticulitis. Please note that all CT scans at this facility use dose modulation, iterative reconstruction, and/or weight-based dosing when appropriate to reduce radiation dose to as low as reasonably achievable. Dictated by Santy Last MD @ 03/20/2024 12:06:19 PM (Electronically Signed)
[2024-03-20] MEDS: FUROSEMIDE 10 MG/ML inj 40 MG IVP (12:42)
[2024-03-20] MEDS: IPRAT-ALBUT 0.5-2.5 MG/3 ML NEB 1 NEB IH (12:43)
--- NOTE | 2024-03-20 13:07 | PM.ANPOST ---
Post Anesthesia Note Post Anesthesia Note Patient seen: Inpatient Respiratory Status: adequate Cardiovascular Status: adequate Mental Status: baseline Pain: adequate Temp: baseline Anesthetic awareness: N/A Complications: none Follow care: none
[2024-03-20] MEDS: MEROPENEM 1 GM in 0.9 % SODIUM CHLORIDE Mini-bag 100 ML IVPB ×2 (14:06→22:09)
--- NOTE | 2024-03-20 14:46 | P.IMPN_ITS ---
Progress Note: A&P Assessment and plan (1) Sepsis: Problem details: -on admission, hypotensive, tachycardic, WBC 22.65, lactate 2.2 -> 2.0 -> 1.1, procalcitonin 60.20 -CT chest abdomen pelvis on admission without acute findings -received 1L LR, 1L NS -continue IV vancomycin and zosyn as initiated in ED -continuing IVF, 3rd bolus given -BCx1 pending, UA unremarkable, UC pending, repeat BC ordered with fever, rapid strep negative -LP completed by anesthesia, CSF labs pending 03/20: BC 1 and 2 growing Gram-negative rods, E coli identified in . Sensitivities pending. UC NGTD. WBC trended up. Lactate WNL. CSF is clear, colorless, WBC 2, glucose 89, total protein 58. Afebrile [address] chest/abdomen/pelvis shows Multifocal ground-glass opacities, most pronounced in the right upper lobe with interlobular septal thickening. Minimal bilateral effusion. Findings are concerning for interstitial pulmonary edema. Atypical infectious-inflammatory infiltrates. CT abdomen pelvis without acute findings. Discussed with infectious disease: Discontinue vancomycin. Start meropenem, pharmacy recommending stopping Zosyn. CSF results thus far unremarkable. With elevated LFTs, bili, differential still includes GI track. If continues to trend up, MRCP. ? ESBL. Agrees with IV Lasix dose x1 Status: Acute (2) Bacteremia: Problem details: -BC 1 and 2 growing Gram-negative rods, E coli identified in . Sensitivities pending -as discussed with TRA CROWE, start meropenem -repeat BC in a.m. Status: Acute (3) Acute hypoxic respiratory failure: Problem details: -sats 84% on RA, previously not hypoxic, tachypneic -VBG pH 7.407, pCO2 35, PO2 104, HC03 22 -triple swab negative x2 -increasing oxygen needs on nasal cannula -> placed on CPAP -new consolidation noted on repeat CXR c/w CAP -continue oxygen supplementation to maintain saturations >88%, high-flow with CPAP at bedtime and as needed -incentive spirometry, aerobika -RT for pulmonary support 03/20: Repeat CT as above. Lasix 40 mg IV x1 given finding the pulmonary edema likely in setting of sepsis resuscitation. DuoNeb x1 to see how she responds Status: Acute (4) Pneumonia: Problem details: -CXR 03/19 shows new small consolidation in the right mid lung -continue IV vancomycin and Zosyn -mucinex, incentive spirometry, aerobika -WBC trending down, procalcitonin trending down, CRP trending down, strep pneumo/Legionella negative 03/20: CT findings as above. Sputum culture ordered Status: Acute (5) Hypertension: Problem details: -holding lisinopril and HCTZ given hypotension in sepsis Status: Acute (6) Type 2 diabetes mellitus: Problem details: -most recent A1c 6.7 -continue Jardiance -glucose checks ACHS, insulin sliding scale Status: Acute (7) Depression: Problem details: -continue Lexapro and bupropion Status: Acute (8) JASWANT (obstructive sleep apnea): Problem details: -continue CPAP Status: Acute (9) Transaminitis: Problem details: -LFTs elevated, previously WNL. Lipase 131. recent vague abdominal pain -history cholecystectomy -CT shows no abnormal biliary duct dilatation -abdominal ultrasound ordered in setting of sepsis 03/20: AST, ALT, alk-phos stable. Bilirubin doubled 1.2 ->2.3. Right upper quadrant tenderness on palpation without guarding, no peritoneal signs. Discussed with General surgery, and ID, trend LFTs. If still elevated MRCP. Would not currently could tolerate this given respiratory distress Status: Acute (10) Hypokalemia: Problem details: -potassium 3.2 -> 3.3, replace with oral supplement -potassium 3.7 Status: Acute (11) Nephrolith: Problem details: -CT shows 2 small nonobstructing right nephrolith measuring up to 7-9 mm, no hydronephrosis -renal ultrasound for further evaluation in setting of sepsis, recent incontinence Status: Acute (12) Pulmonary edema: Problem details: -CT findings as above, in setting of acute sepsis resuscitation -Lasix 40 mg IV x1, monitor for response Status: Acute Time Spent With Patient Total time spent: Total time spent caring for the patient today was 90 minutes. This includes time spent for the visit reviewing the chart, time spent during the visit, time spent after the visit and documentation and planning in coordination of care. Subjective Date Seen: 03/20/24 Interval history: Patient is seen with daughter at bedside. Has remained tachypneic overnight. Continues on high-flow this morning, CPAP overnight. Oxygen saturations mid to high 80s. Systolics again this morning have been < 100. Last fever was at 11:00 a.m. yesterday. While patient reports feeling better, continues to struggle from respiratory point. Denies headache or dizziness this morning. Denies chest pain. Denies abdominal pain though is tender if palpated. Has been urinating without difficulty. No BM yet. Passing gas. No bloating. Tolerating orals without nausea or vomiting. WBC has trended up. Lactate 0.9. CRP trended up. Second BC from 03/19 also + for gram neg rods. E coli growing from 03/18. No sensitivities. LFTs trending down but total bili has doubled. VBG ph 7.358, pco2 39, po2 47 Exam Narrative: Exam Narrative: PHYSICAL EXAM General: Tachypneic, conversant, smiles Cardiovascular: RRR without tachycardia. No pitting edema, chronic swelling Pulmonary: Diffusely diminished, no expiratory wheezes. Dyspneic on high-flow Abdominal: Soft, nondistended, mild tenderness over right upper quadrant this morning, no guarding Neurological: Alert, answering questions appropriately, cranial nerves intact, no focal findings Extremities: Chronic swelling. AROMI. Neurovascularly intact Skin: Warm, dry. Const: Vital Signs, click to edit/add: Vital Signs - 24 hr 03/19/24 15:00 03/19/24 15:00 03/19/24 15:00 Temperature 97.1 F L Pulse Rate Pulse Rate [Pulse Oximeter] 105 H 105 H Respiratory Rate 38 H 38 H 38 H Blood Pressure [R FA] 92/54 L Blood Pressure [Ri ght Arm] Pulse Oximetry 87 L 89 Oxygen Delivery Me thod High Flow Nasal Ca nnula High Flow Nasal Ca nnula Oxygen Flow Rate 35 35 Fraction of Inspir ed Oxygen 40 40 03/19/24 15:00 03/19/24 17:00 03/19/24 18:44 Temperature Pulse Rate 104 H 97 Pulse Rate [Pulse Oximeter] 99 Respiratory Rate Blood Pressure [R FA] 100/54 L Blood Pressure [Ri ght Arm] Pulse Oximetry 89 Oxygen Delivery Me thod High Flow Nasal Ca nnula Oxygen Flow Rate 35 Fraction of Inspir ed Oxygen 40 03/19/24 19:19 03/19/24 19:27 03/19/24 19:29 Temperature 97.4 F L Pulse Rate Pulse Rate [Pulse Oximeter] 98 98 Respiratory Rate 20 20 20 Blood Pressure [R FA] Blood Pressure [Ri ght Arm] 112/57 L Pulse Oximetry 93 93 Oxygen Delivery Me thod High Flow Nasal Ca nnula High Flow Nasal Ca nnula Oxygen Flow Rate 35 35 Fraction of Inspir ed Oxygen 40 03/19/24 19:50 03/19/24 21:02 03/19/24 22:38 Temperature 98.1 F Pulse Rate 94 Pulse Rate [Pulse Oximeter] 94 Respiratory Rate 20 Blood Pressure [R FA] Blood Pressure [Ri ght Arm] 108/71 Pulse Oximetry 90 Oxygen Delivery Me thod CPAP Oxygen Flow Rate 35 3.5 Fraction of Inspir ed Oxygen 40 03/19/24 23:10 03/19/24 23:30 03/20/24 00:00 Temperature 97.3 F L 99.5 F Pulse Rate Pulse Rate [Pulse Oximeter] 107 H 116 H Respiratory Rate 36 H 36 H Blood Pressure [R FA] 137/62 131/71 Blood Pressure [Ri ght Arm] Pulse Oximetry 90 90 94 Oxygen Delivery Me thod CPAP CPAP CPAP Oxygen Flow Rate 3.5 3.5 3.5 Fraction of Inspir ed Oxygen 03/20/24 02:00 03/20/24 02:39 03/20/24 04:00 Temperature 98.5 F Pulse Rate 109 H Pulse Rate [Pulse Oximeter] 113 H 100 Respiratory Rate 38 H 34 H Blood Pressure [R FA] 112/66 Blood Pressure [Ri ght Arm] 95/54 L Pulse Oximetry 91 91 Oxygen Delivery Me thod CPAP CPAP Oxygen Flow Rate 3.5 3.5 Fraction of Inspir ed Oxygen 03/20/24 05:00 03/20/24 05:08 03/20/24 05:08 Temperature 96.6 F L Pulse Rate Pulse Rate [Pulse Oximeter] 97 Respiratory Rate 38 H 38 H 38 H Blood Pressure [R FA] Blood Pressure [Ri ght Arm] 102/61 Pulse Oximetry 85 L 86 L 87 L Oxygen Delivery Me thod CPAP CPAP CPAP Oxygen Flow Rate 3.5 4 4 Fraction of Inspir ed Oxygen 03/20/24 06:00 03/20/24 06:57 03/20/24 08:00 Temperature Pulse Rate 91 Pulse Rate [Pulse Oximeter] 96 Respiratory Rate 36 H Blood Pressure [R FA] Blood Pressure [Ri ght Arm] 108/59 L Pulse Oximetry 89 Oxygen Delivery Me thod CPAP Oxygen Flow Rate 4 Fraction of Inspir ed Oxygen 35 03/20/24 08:00 03/20/24 08:46 03/20/24 08:51 Temperature 97.2 F L Pulse Rate Pulse Rate [Pulse Oximeter] 90 96 Respiratory Rate 26 H 26 H 28 H Blood Pressure [R FA] 110/69 Blood Pressure [Ri ght Arm] Pulse Oximetry 90 90 Oxygen Delivery Me thod CPAP High Flow Nasal Ca nnula Oxygen Flow Rate 4 35 Fraction of Inspir ed Oxygen 35 03/20/24 09:12 03/20/24 09:44 03/20/24 11:52 Temperature 97.0 F L Pulse Rate Pulse Rate [Pulse Oximeter] 83 Respiratory Rate 30 H Blood Pressure [R FA] 107/62 Blood Pressure [Ri ght Arm] Pulse Oximetry 88 Oxygen Delivery Me thod High Flow Nasal Ca nnula Oxygen Flow Rate 35 35 Fraction of Inspir ed Oxygen 35 40 40 03/20/24 12:04 03/20/24 12:04 03/20/24 12:05 Temperature Pulse Rate Pulse Rate [Pulse Oximeter] 83 Respiratory Rate 28 H Blood Pressure [R FA] Blood Pressure [Ri ght Arm] Pulse Oximetry 88 Oxygen Delivery Me thod [place] Nasal Ca nnula Oxygen Flow Rate Fraction of Inspir ed Oxygen 35 03/20/24 12:19 03/20/24 14:18 Temperature Pulse Rate 84 Pulse Rate [Pulse Oximeter] Respiratory Rate Blood Pressure [R FA] Blood Pressure [Ri ght Arm] Pulse Oximetry Oxygen Delivery Me thod Oxygen Flow Rate Fraction of Inspir ed Oxygen 35 Labs Labs: Laboratory Results - last 24 hr 03/19/24 03/20/24 03/20/24 13:12 05:55 08:08 WBC 22.34 H RBC 3.86 L Hgb 11.6 L Hct 35.3 MCV 92 MCH 30 MCHC 33 Plt Count 109 L VBG pH 7.358 VBG pCO2 39 L VBG pO2 47.7 H VBG HCO3 22 Sodium 137 Potassium 3.7 Chloride 105 Carbon Dioxide 23 Anion Gap 9 BUN 38 H Creatinine 1.3 Estimated Creat Clear 31.69 Estimated GFR 45 Glucose 159 H Lactate 0.9 Calcium 7.9 L Total Bilirubin 2.3 H Direct Bilirubin 1.5 H AST 45 H ALT 37 H Alkaline Phosphatase 204 H C-Reactive Protein 22.8 H Total Protein 5.8 L Albumin 2.9 L CSF Volume 4.5 CSF Appearance Clear CSF Color Colorless CSF WBC 2 CSF RBC 2 CSF Mononuclear Cells 100 CSF Polynuclear WBCs 0 CSF Glucose 89 H CSF Total Protein 58 H
--- NOTE | 2024-03-20 15:09 | P.IMPN_ITS ---
Progress Note: A&P Assessment and plan (1) Sepsis: Problem details: -on admission, hypotensive, tachycardic, WBC 22.65, lactate 2.2 -> 2.0 -> 1.1, procalcitonin 60.20 -CT chest abdomen pelvis on admission without acute findings -received 1L LR, 1L NS -continue IV vancomycin and zosyn as initiated in ED -continuing IVF, 3rd bolus given -BCx1 pending, UA unremarkable, UC pending, repeat BC ordered with fever, rapid strep negative -LP completed by anesthesia, CSF labs pending 03/20: BC 1 and 2 growing Gram-negative rods, E coli identified in . Sensitivities pending. UC NGTD. WBC trended up. Lactate WNL. CSF is clear, colorless, WBC 2, glucose 89, total protein 58. Afebrile [address] chest/abdomen/pelvis shows Multifocal ground-glass opacities, most pronounced in the right upper lobe with interlobular septal thickening. Minimal bilateral effusion. Findings are concerning for interstitial pulmonary edema. Atypical infectious-inflammatory infiltrates. CT abdomen pelvis without acute findings. Discussed with infectious disease: Discontinue vancomycin. Start meropenem, pharmacy recommending stopping Zosyn. CSF results thus far unremarkable. With elevated LFTs, bili, differential still includes GI track. If continues to trend up, MRCP. ? ESBL. Agrees with IV Lasix dose x1 Status: Acute (2) Bacteremia: Problem details: -BC 1 and 2 growing Gram-negative rods, E coli identified in . Sensitivities pending -as discussed with TRA CROWE, start meropenem -repeat BC in a.m. Status: Acute (3) Acute hypoxic respiratory failure: Problem details: -sats 84% on RA, previously not hypoxic, tachypneic -VBG pH 7.407, pCO2 35, PO2 104, HC03 22 -triple swab negative x2 -increasing oxygen needs on nasal cannula -> placed on CPAP -new consolidation noted on repeat CXR c/w CAP -continue oxygen supplementation to maintain saturations >88%, high-flow with CPAP at bedtime and as needed -incentive spirometry, aerobika -RT for pulmonary support 03/20: Repeat CT as above. Lasix 40 mg IV x1 given finding the pulmonary edema likely in setting of sepsis resuscitation. DuoNeb x1 to see how she responds Status: Acute (4) Pneumonia: Problem details: -CXR 03/19 shows new small consolidation in the right mid lung -continue IV vancomycin and Zosyn -mucinex, incentive spirometry, aerobika -WBC trending down, procalcitonin trending down, CRP trending down, strep pneumo/Legionella negative 03/20: CT findings as above. Sputum culture ordered Status: Acute (5) Hypertension: Problem details: -holding lisinopril and HCTZ given hypotension in sepsis Status: Acute (6) Type 2 diabetes mellitus: Problem details: -most recent A1c 6.7 -continue Jardiance -glucose checks ACHS, insulin sliding scale Status: Acute (7) Depression: Problem details: -continue Lexapro and bupropion Status: Acute (8) JASWANT (obstructive sleep apnea): Problem details: -continue CPAP Status: Acute (9) Transaminitis: Problem details: -LFTs elevated, previously WNL. Lipase 131. recent vague abdominal pain -history cholecystectomy -CT shows no abnormal biliary duct dilatation -abdominal ultrasound ordered in setting of sepsis 03/20: AST, ALT, alk-phos stable. Bilirubin doubled 1.2 ->2.3. Right upper quadrant tenderness on palpation without guarding, no peritoneal signs. Discussed with General surgery, and ID, trend LFTs. If still elevated MRCP. Would not currently could tolerate this given respiratory distress Status: Acute (10) Hypokalemia: Problem details: -potassium 3.2 -> 3.3, replace with oral supplement -potassium 3.7 Status: Acute (11) Nephrolith: Problem details: -CT shows 2 small nonobstructing right nephrolith measuring up to 7-9 mm, no hydronephrosis -renal ultrasound for further evaluation in setting of sepsis, recent incontinence Status: Acute (12) Pulmonary edema: Problem details: -CT findings as above, in setting of acute sepsis resuscitation -Lasix 40 mg IV x1, monitor for response Status: Acute Time Spent With Patient Total time spent: Total time spent caring for the patient today was 90 minutes. This includes time spent for the visit reviewing the chart, time spent during the visit, time spent after the visit and documentation and planning in coordination of care. Exam Const: Vital Signs, click to edit/add: Vital Signs - 24 hr 03/19/24 17:00 03/19/24 18:44 03/19/24 19:19 Temperature 97.4 F L Pulse Rate 97 Pulse Rate [Pulse Oximeter] 99 98 Respiratory Rate 20 Blood Pressure [R FA] 100/54 L Blood Pressure [Ri ght Arm] 112/57 L Pulse Oximetry 89 93 Oxygen Delivery Me thod High Flow Nasal Ca nnula High Flow Nasal Ca nnula Oxygen Flow Rate 35 35 Fraction of Inspir ed Oxygen 40 03/19/24 19:27 03/19/24 19:29 03/19/24 19:50 Temperature Pulse Rate Pulse Rate [Pulse Oximeter] 98 Respiratory Rate 20 20 Blood Pressure [R FA] Blood Pressure [Ri ght Arm] Pulse Oximetry 93 Oxygen Delivery Me thod High Flow Nasal Ca nnula Oxygen Flow Rate 35 35 Fraction of Inspir ed Oxygen 40 40 03/19/24 21:02 03/19/24 22:38 03/19/24 23:10 Temperature 98.1 F 97.3 F L Pulse Rate 94 Pulse Rate [Pulse Oximeter] 94 107 H Respiratory Rate 20 36 H Blood Pressure [R FA] 137/62 Blood Pressure [Ri ght Arm] 108/71 Pulse Oximetry 90 90 Oxygen Delivery Me thod CPAP CPAP Oxygen Flow Rate 3.5 3.5 Fraction of Inspir ed Oxygen 03/19/24 23:30 03/20/24 00:00 03/20/24 02:00 Temperature 99.5 F Pulse Rate Pulse Rate [Pulse Oximeter] 116 H 113 H Respiratory Rate 36 H 38 H Blood Pressure [R FA] 131/71 112/66 Blood Pressure [Ri ght Arm] Pulse Oximetry 90 94 91 Oxygen Delivery Me thod CPAP CPAP CPAP Oxygen Flow Rate 3.5 3.5 3.5 Fraction of Inspir ed Oxygen 03/20/24 02:39 03/20/24 04:00 03/20/24 05:00 Temperature 98.5 F Pulse Rate 109 H Pulse Rate [Pulse Oximeter] 100 Respiratory Rate 34 H 38 H Blood Pressure [R FA] Blood Pressure [Ri ght Arm] 95/54 L Pulse Oximetry 91 85 L Oxygen Delivery Me thod CPAP CPAP Oxygen Flow Rate 3.5 3.5 Fraction of Inspir ed Oxygen 03/20/24 05:08 03/20/24 05:08 03/20/24 06:00 Temperature 96.6 F L Pulse Rate Pulse Rate [Pulse Oximeter] 97 96 Respiratory Rate 38 H 38 H 36 H Blood Pressure [R FA] Blood Pressure [Ri ght Arm] 102/61 108/59 L Pulse Oximetry 86 L 87 L 89 Oxygen Delivery Me thod CPAP CPAP CPAP Oxygen Flow Rate 4 4 4 Fraction of Inspir ed Oxygen 03/20/24 06:57 03/20/24 08:00 03/20/24 08:00 Temperature 97.2 F L Pulse Rate 91 Pulse Rate [Pulse Oximeter] 90 Respiratory Rate 26 H Blood Pressure [R FA] 110/69 Blood Pressure [Ri ght Arm] Pulse Oximetry 90 Oxygen Delivery Me thod CPAP Oxygen Flow Rate 4 Fraction of Inspir ed Oxygen 35 03/20/24 08:46 03/20/24 08:51 03/20/24 09:12 Temperature Pulse Rate Pulse Rate [Pulse Oximeter] 96 Respiratory Rate 26 H 28 H Blood Pressure [R FA] Blood Pressure [Ri ght Arm] Pulse Oximetry 90 Oxygen Delivery Me thod High Flow Nasal [place] Oxygen Flow Rate 35 Fraction of Inspir ed Oxygen 35 35 03/20/24 09:44 03/20/24 11:52 03/20/24 12:04 Temperature 97.0 F L Pulse Rate Pulse Rate [Pulse Oximeter] 83 Respiratory Rate 30 H Blood Pressure [R FA] 107/62 Blood Pressure [Ri ght Arm] Pulse Oximetry 88 Oxygen Delivery Me thod High Flow Nasal [place] Oxygen Flow Rate 35 35 Fraction of Inspir ed Oxygen 40 40 35 03/20/24 12:04 03/20/24 12:05 03/20/24 12:19 Temperature Pulse Rate 84 Pulse Rate [Pulse Oximeter] 83 Respiratory Rate 28 H Blood Pressure [R FA] Blood Pressure [Ri ght Arm] Pulse Oximetry 88 Oxygen Delivery Me thod [place] Nasal Ca nnula Oxygen Flow Rate Fraction of Inspir ed Oxygen 03/20/24 14:18 Temperature Pulse Rate Pulse Rate [Pulse Oximeter] Respiratory Rate Blood Pressure [R FA] Blood Pressure [Ri ght Arm] Pulse Oximetry Oxygen Delivery Me thod Oxygen Flow Rate Fraction of Inspir ed Oxygen 35 Labs Labs: Laboratory Results - last 24 hr 03/19/24 03/20/24 03/20/24 13:12 05:55 08:08 WBC 22.34 H RBC 3.86 L Hgb 11.6 L Hct 35.3 MCV 92 MCH 30 MCHC 33 Plt Count 109 L VBG pH 7.358 VBG pCO2 39 L VBG pO2 47.7 H VBG HCO3 22 Sodium 137 Potassium 3.7 Chloride 105 Carbon Dioxide 23 Anion Gap 9 BUN 38 H Creatinine 1.3 Estimated Creat Clear 31.69 Estimated GFR 45 Glucose 159 H Lactate 0.9 Calcium 7.9 L Total Bilirubin 2.3 H Direct Bilirubin 1.5 H AST 45 H ALT 37 H Alkaline Phosphatase 204 H C-Reactive Protein 22.8 H Total Protein 5.8 L Albumin 2.9 L CSF Volume 4.5 CSF Appearance Clear CSF Color Colorless CSF Glucose 89 H CSF Total Protein 58 H
[2024-03-20] MEDS: INSULIN ASPART 100 UNIT/ML SUBCUT (17:57)
[2024-03-20] MEDS: ACETAMINOPHEN 500 MG TABLET PO (18:01)
--- NOTE | 2024-03-20 18:24 | PC.NURSE ---
end of shift. pt has been very pleasant and cooperative. she is alert x4. she has high flow 02 on @ 35 , 35 and 36. RT has been in to see her. she is up with A x 1 gb and walker, pivot transfers only. Pt reported feeling dizzy with a headache,this am and she got a Tylenol. she also complained of being hot and sweaty; no temp and BS was normal. , tylenol given, Pt up between bed and chair throughout shift. she looks and feels better this evening. IV was stopped and lasix was given. tele is nsr. BS are 100-200 SL are patent. .
[2024-03-20] MEDS: SENNOSIDES/DOCUSATE TABLET 1 TAB PO (20:46)
[2024-03-20] MEDS: ENOXAPARIN 40 MG/0.4 ML INJ SUBCUT (20:46)
--- NOTE | 2024-03-20 22:33 | PM.CCEN ---
Critical Care Event Note Summary Date Seen: 03/20/24 Code activated: No Narrative: Patient noted to have new onset AFib with RVR this evening. She was resting in bed with CPAP on when rhythm noted (on telemetry). Denies CP, unaware of arrhythmia. On exam, appears comfortable. HR is irregular, rate 110s. Will give one time dose of Diltiazem, monitor closely. Consider Diltiazem gtt if a fib persistent. Increase Lovenox to 1mg/kg Q12H. TTE ordered. Offered to call and update family members, patient declined. This case had a high probability of a clinically significant, sudden, or life threatening deterioration of this patient's condition which required my full and direct attention, intervention and personal management. Critical care time: less than 30 mins
[2024-03-20] MEDS: dilTIAZem 5 MG/ML inj 10 MG IVP (22:35)
[2024-03-20] MEDS: METOPROLOL TARTRATE 1 MG/ML inj 5 MG IVP (23:44)
[2024-03-21] VITALS (23 sets, daily range): BP systolic 84–126; BP diastolic 51–87; PULSE 73–107; RESP 22–32; TEMP 36–36.5; O2SAT 86–96
[2024-03-21] MEDS: MEROPENEM 1 GM in 0.9 % SODIUM CHLORIDE Mini-bag 100 ML IVPB ×3 (05:48→21:56)
--- NOTE | 2024-03-21 06:04 | PC.NURSE ---
[id number] Pt did not sleep well during night, noticed patient was in A-fib with RVR approx 2200, updated, orders received and administered, pt HR remained in A-fib with rate in 90's to 110's with occasion brief increases to 120's until approx 0100 at which time pt converted back to NSR and has remained in NSR for remainder of night. Cpap on during night with 5 LPM O2 bled into pt owned cpap to maintain sats >88%. BSC used during shift to use BR, pt able to ambulated independently to recliner this morning, denied SOB, difficulty breathing, chest pain, lightheaded or dizziness, O2 sats on RA after pt ambulated to recliner 79%, placed pt on HFNC at 35L 35% 36degrees and Pt O2 sats currently 89%. Pt states she feels great
[2024-03-21 07:35] LABS: HCO3 VBG 25 mmol/L (21-28); PCO2 VBG 36 mmHG (40-50); PO2 VBG 49.2 mmHG (25-47); pH VBG 7.454 (7.32-7.43)
[2024-03-21 07:37] LABS: Hematocrit 32.3 % (33.0-51.0); Hemoglobin* 10.8 gm/dL (12.0-16.0); Mean Corpuscular HGB Conc 33 gm/dL (32-36); Mean Corpuscular Hemoglobin 30 pg (26-34); Mean Corpuscular Volume 89 fL (80-100); Platelet Count* 145 K/uL (140-440); Red Blood Count 3.64 m/uL (4.00-5.20); White Blood Count* 24.46 K/uL (4.50-11.00)
[2024-03-21 07:40] LABS: Slide Review Reflex No
[2024-03-21] MEDS: METOPROLOL TARTRATE 25 MG TABLET PO ×2 (07:53→21:14)
[2024-03-21 08:02] LABS: Chloride* 105 mmol/L (96-114)
[2024-03-21 08:03] LABS: Albumin* 2.9 g/dL (3.3-5.0); Sodium* 135 mmol/L (135-149)
[2024-03-21 08:04] LABS: Potassium* 4.2 mmol/L (3.6-5.1)
[2024-03-21 08:05] LABS: Creatinine* 0.9 mg/dL (0.5-1.5); Est. Creatinine Clearance* 41.19; Estimated Glomerular Filt Rate 70 ml/min
[2024-03-21 08:06] LABS: Alanine Aminotransferase* 31 U/L (4-35); Alkaline Phosphatase* 156 U/L (40-150); Anion Gap 5 mEq/L (7-15); Aspartate Amino Transferase* 51 U/L (12-35); Bilirubin Total* 2.1 mg/dL (0.1-1.5); Blood Urea Nitrogen* 29 mg/dL (7-30); Carbon Dioxide* 25 mmol/L (20-32); Total Protein* 6.3 g/dL (6.0-8.3)
[2024-03-21 08:07] LABS: Glucose* 125 mg/dL (60-115)
[2024-03-21 08:22] LABS: C Reactive Protein* 21.1 mg/dL (0.5-1.0)
[2024-03-21] MEDS: guaiFENesin 600 MG TAB.ER.12H PO ×2 (08:47→21:14)
[2024-03-21] MEDS: EMPAGLIFLOZIN 10 MG TABLET PO (08:47)
[2024-03-21] MEDS: SENNOSIDES/DOCUSATE TABLET 1 TAB PO ×2 (08:47→21:14)
[2024-03-21] MEDS: ESCITALOPRAM 10 MG TABLET 5 MG PO (08:47)
[2024-03-21] MEDS: buPROPion HCL SR 150 MG TAB PO ×2 (08:47→21:14)
[2024-03-21] MEDS: ENOXAPARIN 40 MG/0.4 ML INJ 120 MG SUBCUT ×2 (08:48→21:15)
[2024-03-21] MEDS: SODIUM CHLORIDE 0.9 % (FLUSH) 10 ML SYRINGE 5 ML IVF ×3 (08:48→21:15)
[2024-03-21] MEDS: FUROSEMIDE 10 MG/ML inj 40 MG IVP (10:39)
--- NOTE | 2024-03-21 11:29 | PM.GSPN ---
Subjective Subjective Date Seen: 03/21/24 Interval history: Dodie states that she feels better this morning. Denies abdominal pain. No bowel movement. She states she is passing gas but also belching. Exam Narrative: Exam Narrative: General: No acute distress Respiratory: Tachypneic. On high-flow nasal cannula. Abdomen: Protuberant. Nontender to palpation. Const: Vital Signs, click to edit/add: Vital Signs - 24 hr 03/20/24 11:52 03/20/24 12:04 03/20/24 12:04 Temperature 97.0 F L Pulse Rate Pulse Rate [Pulse Oximeter] 83 83 Respiratory Rate 30 H 28 H Blood Pressure [R FA] 107/62 Pulse Oximetry 88 Oxygen Delivery Me thod High Flow Nasal Ca nnula Oxygen Flow Rate 35 Fraction of Inspir ed Oxygen 40 35 03/20/24 12:05 03/20/24 12:19 03/20/24 14:18 Temperature Pulse Rate 84 Pulse Rate [Pulse Oximeter] Respiratory Rate Blood Pressure [R FA] Pulse Oximetry 88 Oxygen Delivery Me thod [place] Nasal Ca nnula Oxygen Flow Rate Fraction of Inspir ed Oxygen 35 03/20/24 15:30 03/20/24 15:52 03/20/24 15:57 Temperature 97.0 F L Pulse Rate 84 Pulse Rate [Pulse Oximeter] 89 Respiratory Rate 24 Blood Pressure [R FA] 105/53 L Pulse Oximetry 90 Oxygen Delivery Me thod [place] Nasal Ca nnula Oxygen Flow Rate 35 Fraction of Inspir ed Oxygen 35 35 03/20/24 15:57 03/20/24 17:47 03/20/24 19:00 Temperature 98.8 F Pulse Rate Pulse Rate [Pulse Oximeter] 89 97 Respiratory Rate 24 32 H Blood Pressure [R FA] 117/56 L Pulse Oximetry 93 Oxygen Delivery Me thod High Flow Nasal Ca nnula Oxygen Flow Rate 35 Fraction of Inspir ed Oxygen 35 35 03/20/24 20:00 03/20/24 20:00 03/20/24 21:27 Temperature Pulse Rate 97 Pulse Rate [Pulse Oximeter] Respiratory Rate 32 H Blood Pressure [R FA] Pulse Oximetry Oxygen Delivery Me thod Oxygen Flow Rate Fraction of Inspir ed Oxygen 35 03/20/24 22:00 03/20/24 22:16 03/20/24 22:20 Temperature 98.6 F Pulse Rate 113 H Pulse Rate [Pulse Oximeter] 125 H Respiratory Rate 32 H Blood Pressure [R FA] 119/61 Pulse Oximetry 93 Oxygen Delivery Me thod High Flow Nasal Ca nnula CPAP Oxygen Flow Rate 4 Fraction of Inspir ed Oxygen 35 03/20/24 22:53 03/21/24 00:01 03/21/24 01:02 Temperature Pulse Rate 96 Pulse Rate [Pulse Oximeter] 107 H Respiratory Rate 32 H Blood Pressure [R FA] 84/51 L Pulse Oximetry 91 Oxygen Delivery Me thod Oxygen Flow Rate Fraction of Inspir ed Oxygen 03/21/24 01:19 03/21/24 03:00 03/21/24 06:00 Temperature 96.8 F L Pulse Rate Pulse Rate [Pulse Oximeter] 94 86 Respiratory Rate 28 H 32 H Blood Pressure [R FA] 109/60 126/64 Pulse Oximetry 86 L 91 Oxygen Delivery Me thod CPAP CPAP Oxygen Flow Rate 6 5 Fraction of Inspir ed Oxygen 35 03/21/24 06:11 03/21/24 07:17 03/21/24 07:55 Temperature Pulse Rate 73 82 Pulse Rate [Pulse Oximeter] Respiratory Rate Blood Pressure [R FA] Pulse Oximetry Oxygen Delivery Me thod Oxygen Flow Rate Fraction of Inspir ed Oxygen 35 03/21/24 07:57 03/21/24 08:00 03/21/24 10:07 Temperature 97.5 F L Pulse Rate Pulse Rate [Pulse Oximeter] 84 Respiratory Rate 28 H 28 H Blood Pressure [R FA] 110/54 L Pulse Oximetry 90 Oxygen Delivery Me thod High Flow Nasal Ca nnula Oxygen Flow Rate 35 35 Fraction of Inspir ed Oxygen 35 45 03/21/24 10:31 03/21/24 10:33 Temperature 97.5 F L Pulse Rate Pulse Rate [Pulse Oximeter] 75 Respiratory Rate 30 H Blood Pressure [R FA] 123/75 Pulse Oximetry 96 Oxygen Delivery Me thod High Flow Nasal Ca nnula Oxygen Flow Rate 35 Fraction of Inspir ed Oxygen 45 45 Labs/Imaging Labs Labs: White blood cell count is slightly more elevated today at 24 from 22. LFTs remain elevated. Total bilirubin is 2.1, AST is up slightly to 51. ALT is down slightly to 31. Alkaline phosphatase is down slightly to 156. C reactive protein is relatively stable at 21 from 22. Imaging Imaging: CT scan of the abdomen pelvis which was repeated yesterday showed: IMPRESSION: 1. No acute findings in the abdomen and pelvis. 2. Redemonstration of nonobstructing right nephrolithiasis. 3. Colonic diverticulosis without diverticulitis. Dictated by Santy Last MD @ 03/20/2024 12:06:19 PM Progress Note:A&P Assessment and plan (1) Pulmonary edema: Status: Acute (2) Bacteremia: Status: Acute (3) Nephrolith: Status: Acute (4) Hypokalemia: Status: Acute (5) Transaminitis: Status: Acute (6) Pneumonia: Status: Acute (7) Acute hypoxic respiratory failure: Status: Acute Plan The patient is a 68-year-old female with pneumonia and E coli bacteremia. She has mildly elevated LFTs and no clear source for her E coli bacteremia. -CT scan reviewed. No abscesses noted. There is fat stranding about the kidneys bilaterally, however UA was unremarkable. -MRCP would rule out cholangitis, however, patient may not tolerate laying flat for the length of time that is necessary given her respiratory status. Additionally, we do not have MRI availability this weekend. -Patient did not have biliary dilatation seen on imaging or ultrasound and as mentioned LFT elevation is mixed. Consider GI consult. -agree with ID consult -agree with broad antibiotics. -consider suppository as she has not had a bowel movement since she has been here. -if patient continues to have a worsening clinical picture may need to transfer for higher level care for further workup of elevated LFTs.
--- NOTE | 2024-03-21 12:21 | PM.IMPN1 ---
Progress Note: A&P Assessment and plan (1) Sepsis: Problem details: -on admission, hypotensive, tachycardic, WBC 22.65, lactate 2.2 -> 2.0 -> 1.1, procalcitonin 60.20 -CT chest abdomen pelvis on admission without acute findings -received 1L LR, 1L NS -continue IV vancomycin and zosyn as initiated in ED - discontinued and changed to meropenem 03/20 -continuing IVF, 3rd bolus given -BC updates as below in #2, UA unremarkable, UC NGTD, rapid strep negative -LP completed by anesthesia, CSF labs reviewed, unremarkable, gram stain no organism, culture NGTD 03/20: BC 1 and 2 growing Gram-negative rods, E coli identified in . Sensitivities pending. UC NGTD. WBC trended up. Lactate WNL. CSF is clear, colorless, WBC 2, glucose 89, total protein 58. Afebrile [address] chest/abdomen/pelvis shows Multifocal ground-glass opacities, most pronounced in the right upper lobe with interlobular septal thickening. Minimal bilateral effusion. Findings are concerning for interstitial pulmonary edema. Atypical infectious-inflammatory infiltrates. CT abdomen pelvis without acute findings. Discussed with infectious disease: Discontinue vancomycin. Start meropenem, pharmacy recommending stopping Zosyn. CSF results thus far unremarkable. With elevated LFTs, bili, differential still includes GI track. If continues to trend up, MRCP. ?ESBL. Agrees with IV Lasix dose x1 03/21: WBC continues to trend up. No significant improvement. Awaiting cultures. Discussed with Dr. Velásquez, onyx chip terrazzo worker at [facility], recommending transfer for ICU. Discussed with Brandee Tai, Supervisor [employer] [place], Dr. Jackson, Hospitalist, accepting for transfer to [facility], pending bed availability, currently > 8 hours Status: Acute (2) Bacteremia: Problem details: -BC 1 on 03/18 and 2 on 03/19 growing Gram-negative rods, E coli identified in . Sensitivities reviewed,+ meropenem. MRSA negative -as discussed with TRA CROWE vancrosy and Margaritasyisai, start meropenem on 03/20 -BC 3 on 03/20 NGTD -BC 4 on 03/21 NGTD Status: Acute (3) Acute hypoxic respiratory failure: Problem details: -sats 84% on RA, previously not hypoxic, tachypneic -VBG pH 7.407, pCO2 35, PO2 104, HC03 22 -triple swab negative x2 -increasing oxygen needs on nasal cannula -> placed on CPAP -new consolidation noted on repeat CXR c/w CAP -continue oxygen supplementation to maintain saturations >88%, high-flow with CPAP at bedtime and as needed -incentive spirometry, aerobika -RT for pulmonary support 03/20: Repeat CT as above. Lasix 40 mg IV x1, repeat on 03/21 given finding the pulmonary edema likely in setting of sepsis resuscitation. Angelia. Some improvement in how she feels however continues to have increasing oxygen needs and remains tachypneic 03/21: No significant improvement. Remains tachypneic, on high flow. Will transfer to [place] pending bed availability Status: Acute (4) Pneumonia: Problem details: -CXR 03/19 shows new small consolidation in the right mid lung -continue IV vancomycin and Zosyn - discontinued and started on meropenem 03/20 -mucinex, incentive spirometry, aerobika -WBC trending down, procalcitonin trending down, CRP trending down, strep pneumo/Legionella negative -repeat CT findings 03/20 as above. Sputum gram stain with epithelial cells, culture pending Status: Acute (5) Hypertension: Problem details: -holding lisinopril and HCTZ given hypotension in sepsis Status: Acute (6) Type 2 diabetes mellitus: Problem details: -most recent A1c 6.7 -continue Jardiance -glucose checks ACHS, insulin sliding scale Status: Acute (7) Depression: Problem details: -continue Lexapro and bupropion Status: Acute (8) JASWANT (obstructive sleep apnea): Problem details: -continue CPAP Status: Acute (9) Transaminitis: Problem details: -LFTs elevated, previously WNL. Lipase 131. recent vague abdominal pain -history cholecystectomy -CT shows no abnormal biliary duct dilatation -abdominal ultrasound ordered in setting of sepsis shows ecogenic liver, common bile duct 5mm 03/20: AST, ALT, alk-phos stable. Bilirubin doubled 1.2 ->2.3. Right upper quadrant tenderness on palpation without guarding, no peritoneal signs. Discussed with General surgery, and ID, trend LFTs. If still elevated MRCP. Would not currently could tolerate this given respiratory distress 03/21: T bili mildly decreased. May still benefit from MRCP/ERCP. Will defer to [facility] care Status: Acute (10) Hypokalemia: Problem details: -potassium 3.2 -> 3.3, replace with oral supplement -potassium 3.7 ->3.3 following diuresis -b.i.d. potassium supplement ordered Status: Acute (11) Nephrolith: Problem details: -CT shows 2 small nonobstructing right nephrolith measuring up to 7mm, no hydronephrosis -renal ultrasound for further evaluation in setting of sepsis, recent incontinence-resolved, confirms nephroliths, no obstruction, no hydronephrosis Status: Acute (12) Pulmonary edema: Problem details: -CT findings as above, in setting of acute sepsis resuscitation -Lasix 40 mg IV x1, monitoring response Status: Acute Plan Awaiting transfer to tertiary care center Time Spent With Patient Total time spent: Total time spent caring for the patient today was 90 minutes. This includes time spent for the visit reviewing the chart, time spent during the visit, time spent after the visit and documentation and planning in coordination of care. Subjective Date Seen: 03/22/24 Interval history: Patient is seen with at bedside, remains tachypneic on high-flow. Is able to sit up in a chair. Remains afebrile. No further headaches. No dizziness. Denies chest pain. Tolerating orals without nausea vomiting. WBC continues to trend up LFTs without significant improvement, abdominal pain not resolved Tachypneic without significant improvement, requiring high-flow Exam Narrative: Exam Narrative: PHYSICAL EXAM General: Tachypneic, conversant, smiles Cardiovascular: RRR without tachycardia. +2 pitting edema Pulmonary: Diffusely diminished, no expiratory wheezes. Dyspneic on high-flow Abdominal: Soft, nondistended, mild tenderness over right upper quadrant, no guarding Neurological: Alert, answering questions appropriately, cranial nerves intact, no focal findings Extremities: Chronic swelling. AROMI. Neurovascularly intact Skin: Warm, dry. Const: Vital Signs, click to edit/add: Vital Signs - 24 hr 03/21/24 14:01 03/21/24 14:02 03/21/24 15:33 Temperature 97.3 F L Pulse Rate Pulse Rate [Pulse Oximeter] 79 Respiratory Rate 28 H Blood Pressure [R FA] 104/63 Pulse Oximetry 96 Oxygen Delivery Me thod High Flow Nasal Ca nnula Oxygen Flow Rate 35 Fraction of Inspir ed Oxygen 45 45 40 03/21/24 15:33 03/21/24 16:02 03/21/24 18:00 Temperature 97.6 F Pulse Rate Pulse Rate [Pulse Oximeter] 77 78 Respiratory Rate 30 H 24 Blood Pressure [R FA] 94/57 L Pulse Oximetry 93 Oxygen Delivery Me thod High Flow Nasal Ca nnula Oxygen Flow Rate 35 Fraction of Inspir ed Oxygen 40 40 03/21/24 18:00 03/21/24 18:00 03/21/24 20:00 Temperature 97.6 F Pulse Rate 81 Pulse Rate [Pulse Oximeter] 81 Respiratory Rate 24 Blood Pressure [R FA] 108/63 Pulse Oximetry 94 Oxygen Delivery Me thod High Flow Nasal Ca nnula Oxygen Flow Rate 35 Fraction of Inspir ed Oxygen 40 40 03/21/24 20:00 03/21/24 20:00 03/21/24 22:00 Temperature 97.7 F 97.2 F L Pulse Rate Pulse Rate [Pulse Oximeter] 84 73 Respiratory Rate 26 H 26 H 22 Blood Pressure [R FA] 115/77 100/53 L Pulse Oximetry 96 92 Oxygen Delivery Me thod High Flow Nasal Ca nnula CPAP Oxygen Flow Rate 35 4 Fraction of Inspir ed Oxygen 40 03/21/24 22:00 03/22/24 00:00 03/22/24 02:00 Temperature 96.2 F L Pulse Rate 77 Pulse Rate [Pulse Oximeter] 75 72 Respiratory Rate 24 22 Blood Pressure [R FA] 109/62 105/64 Pulse Oximetry 93 91 Oxygen Delivery Me thod CPAP CPAP Oxygen Flow Rate 4 4 Fraction of Inspir ed Oxygen 03/22/24 02:53 03/22/24 04:00 03/22/24 05:58 Temperature Pulse Rate 71 Pulse Rate [Pulse Oximeter] 72 Respiratory Rate 22 Blood Pressure [R FA] 110/60 Pulse Oximetry 93 Oxygen Delivery Me thod CPAP Oxygen Flow Rate 4 Fraction of Inspir ed Oxygen 35 03/22/24 05:58 03/22/24 06:00 03/22/24 07:23 Temperature 96.5 F L Pulse Rate 73 Pulse Rate [Pulse Oximeter] 73 Respiratory Rate 24 Blood Pressure [R FA] 104/60 Pulse Oximetry 91 Oxygen Delivery Me thod High Flow Nasal Ca nnula CPAP Oxygen Flow Rate 35 Fraction of Inspir ed Oxygen 35 35 03/22/24 07:23 03/22/24 07:30 03/22/24 10:12 Temperature 97.2 F L Pulse Rate Pulse Rate [Pulse Oximeter] 72 Respiratory Rate 28 H 28 H Blood Pressure [R FA] 102/68 Pulse Oximetry 92 Oxygen Delivery Me thod High Flow Nasal Ca nnula Oxygen Flow Rate 35 Fraction of Inspir ed Oxygen 35 35 03/22/24 10:12 03/22/24 10:15 03/22/24 10:33 Temperature 97.2 F L Pulse Rate 88 Pulse Rate [Pulse Oximeter] 79 Respiratory Rate 30 H Blood Pressure [R FA] 119/70 Pulse Oximetry 95 Oxygen Delivery Me thod High Flow Nasal Ca nnula Oxygen Flow Rate 35 Fraction of Inspir ed Oxygen 35 30 03/22/24 11:44 03/22/24 11:50 03/22/24 11:50 Temperature 97.5 F L Pulse Rate 77 Pulse Rate [Pulse Oximeter] 78 Respiratory Rate 28 H Blood Pressure [R FA] 108/72 Pulse Oximetry 92 Oxygen Delivery Me thod Oxygen Flow Rate 35 Fraction of Inspir ed Oxygen 30 30 03/22/24 11:57 Temperature Pulse Rate Pulse Rate [Pulse Oximeter] 74 Respiratory Rate 28 H Blood Pressure [R FA] Pulse Oximetry Oxygen Delivery Me thod Oxygen Flow Rate Fraction of Inspir ed Oxygen Labs Labs: Laboratory Results - last 24 hr 03/21/24 03/22/24 07:29 06:51 WBC 22.87 H RBC 3.58 L Hgb 10.6 L Hct 32.0 L MCV 89 MCH 30 MCHC 33 Plt Count 173 ESR 83 H Sodium 136 Potassium 3.3 L Chloride 104 Carbon Dioxide 28 Anion Gap 4 L BUN 27 Creatinine 0.8 Estimated Creat Clear 41.19 Estimated GFR 81 Glucose 128 H Calcium 8.1 L Total Bilirubin 1.5 AST 38 H ALT 26 Alkaline Phosphatase 155 H C-Reactive Protein 16.6 H Total Protein 6.0 Albumin 2.8 L
[2024-03-21 12:35] LABS: Erythrocyte SedimentationRate* 83 mm/hr (2-20)
--- NOTE | 2024-03-21 15:15 | PC.NURSE ---
Pt alert and oriented. Pt up with SBA with walker and gait belt. Pt up in chair multiple times during shift. Pt had no complaints of pain. Pt is on Hi Isaac- see EMR for settings and adjustments. Pt is tachypneic at rest and with movement. Pt?s blood sugars 07-124, 11-147; no intervention. Pt is on wait list for [facility] for higher level of care at [address] [place] [address] hospital stated an 8 hour wait.?
[2024-03-21] MEDS: INSULIN ASPART 100 UNIT/ML SUBCUT (17:23)
[2024-03-21] MEDS: 0.9 % SODIUM CHLORIDE 250 ml IV (21:58)
[2024-03-22] VITALS (27 sets, daily range): BP systolic 102–128; BP diastolic 60–77; PULSE 71–88; RESP 22–30; TEMP 35.7–36.5; O2SAT 88–96
[2024-03-22] MEDS: MEROPENEM 1 GM in 0.9 % SODIUM CHLORIDE Mini-bag 100 ML IVPB ×3 (05:47→22:02)
--- NOTE | 2024-03-22 06:07 | PC.NURSE ---
[id number] Pt slept entire night, using home cpap with 4 LPM O2, maintained sats >90% entire night while sleeping. Up to chair approx 0545, HFNC applied 35L 35% 36 degrees with O2 sats maintained >89%. denies sob, chest pain, lightheaded or dizziness. Pt mid 80's on RA, when using IS and Aerobika, pt O2 sats increased to 91% on RA but quickly decrease back down to 84% when not actively using IS/ Aerobika. Sputum sample collected and sent to lab. voiding and BM this shift. slept on L arm, ice applied after getting up into recliner.
[2024-03-22 07:32] LABS: Hemoglobin* 10.6 gm/dL (12.0-16.0); Mean Corpuscular HGB Conc 33 gm/dL (32-36); Mean Corpuscular Hemoglobin 30 pg (26-34); Mean Corpuscular Volume 89 fL (80-100); Platelet Count* 173 K/uL (140-440); Red Blood Count 3.58 m/uL (4.00-5.20); White Blood Count* 22.87 K/uL (4.50-11.00)
[2024-03-22 07:39] LABS: Slide Review Reflex No
[2024-03-22 07:47] LABS: Albumin* 2.8 g/dL (3.3-5.0); Chloride* 104 mmol/L (96-114)
[2024-03-22 07:48] LABS: Potassium* 3.3 mmol/L (3.6-5.1); Sodium* 136 mmol/L (135-149)
[2024-03-22 07:50] LABS: Bilirubin Total* 1.5 mg/dL (0.1-1.5); Creatinine* 0.8 mg/dL (0.5-1.5); Est. Creatinine Clearance* 41.19; Estimated Glomerular Filt Rate 81 ml/min
[2024-03-22 07:51] LABS: Alanine Aminotransferase* 26 U/L (4-35); Alkaline Phosphatase* 155 U/L (40-150); Anion Gap 4 mEq/L (7-15); Aspartate Amino Transferase* 38 U/L (12-35); Blood Urea Nitrogen* 27 mg/dL (7-30); Calcium* 8.1 mg/dL (8.4-10.6); Carbon Dioxide* 28 mmol/L (20-32); Glucose* 128 mg/dL (60-115)
[2024-03-22 09:06] LABS: C Reactive Protein* 16.6 mg/dL (0.5-1.0)
[2024-03-22] MEDS: buPROPion HCL SR 150 MG TAB PO ×2 (09:07→20:46)
[2024-03-22] MEDS: METOPROLOL TARTRATE 25 MG TABLET PO ×2 (09:07→20:46)
[2024-03-22] MEDS: guaiFENesin 600 MG TAB.ER.12H PO ×2 (09:07→20:46)
[2024-03-22] MEDS: EMPAGLIFLOZIN 10 MG TABLET PO (09:08)
[2024-03-22] MEDS: SODIUM CHLORIDE 0.9 % (FLUSH) 10 ML SYRINGE 5 ML IVF ×4 (09:08→20:46)
[2024-03-22] MEDS: SENNOSIDES/DOCUSATE TABLET 1 TAB PO (09:08)
[2024-03-22] MEDS: ESCITALOPRAM 10 MG TABLET 5 MG PO (09:08)
[2024-03-22] MEDS: ENOXAPARIN 40 MG/0.4 ML INJ 120 MG SUBCUT (09:08)
--- NOTE | 2024-03-22 12:21 | PM.DS1 ---
DS: Providers Provider Date Seen: 03/21/24 Date of admission: 03/19/24 08:12 Primary care physician: Not a Local Provider Admitting Clinician: Stacey Turk MD Consults: 03/20/24 12:35 Consult to Infectious Diseases [CONS] Urgent Comment: Consulting Provider: Obi TeleInfectious Disease Attending Physician on discharge: CHUY Tavera[facility] Date of Discharge: 03/21/24 DS: Diagnosis Discharge Diagnosis (1) Sepsis: Status: Acute Problem details: -on admission, hypotensive, tachycardic, WBC 22.65, lactate 2.2 -> 2.0 -> 1.1, procalcitonin 60.20 -CT chest abdomen pelvis on admission without acute findings -received 1L LR, 1L NS -continue IV vancomycin and zosyn as initiated in ED - discontinued and changed to meropenem 03/20 -continuing IVF, 3rd bolus given -BC updates as below in #2, UA unremarkable, UC NGTD, rapid strep negative -LP completed by anesthesia, CSF labs reviewed, unremarkable, gram stain no organism, culture NGTD 03/20: BC 1 and 2 growing Gram-negative rods, E coli identified in . Sensitivities pending. UC NGTD. WBC trended up. Lactate WNL. CSF is clear, colorless, WBC 2, glucose 89, total protein 58. Afebrile [address] chest/abdomen/pelvis shows Multifocal ground-glass opacities, most pronounced in the right upper lobe with interlobular septal thickening. Minimal bilateral effusion. Findings are concerning for interstitial pulmonary edema. Atypical infectious-inflammatory infiltrates. CT abdomen pelvis without acute findings. Discussed with infectious disease: Discontinue vancomycin. Start meropenem, pharmacy recommending stopping Zosyn. CSF results thus far unremarkable. With elevated LFTs, bili, differential still includes GI track. If continues to trend up, MRCP. ?ESBL. Agrees with IV Lasix dose x1 03/21: WBC continues to trend up. No significant improvement. Awaiting cultures. Discussed with Dr. Velásquez, slitter creaser slotter helper at [facility], recommending transfer for ICU. Discussed with Brandee Tai, [facility] [place], Dr. Jackson, Hospitalist, accepting for transfer to [facility], pending bed availability, currently > 8 hours 03/22: Transferred to [facility] for further management 0115 03/23 (2) Bacteremia: Status: Acute Problem details: -BC 1 on 03/18 and 2 on 03/19 growing Gram-negative rods, E coli identified in 1st. Sensitivities reviewed,+ meropenem. MRSA negative -as discussed with IDTRA vanco and Zosyn, start meropenem on 03/20 -BC 3 on 03/20 NGTD -BC 4 on 03/21 NGTD (3) Acute hypoxic respiratory failure: Status: Acute Problem details: -sats 84% on RA, previously not hypoxic, tachypneic -VBG pH 7.407, pCO2 35, PO2 104, HC03 22 -triple swab negative x2 -increasing oxygen needs on nasal cannula -> placed on CPAP -new consolidation noted on repeat CXR c/w CAP -continue oxygen supplementation to maintain saturations >88%, high-flow with CPAP at bedtime and as needed -incentive spirometry, aerobika -RT for pulmonary support 03/20: Repeat CT as above. Lasix 40 mg IV x1, repeat on 03/21 given finding the pulmonary edema likely in setting of sepsis resuscitation. Angelia. Some improvement in how she feels however continues to have increasing oxygen needs and remains tachypneic 03/21: No significant improvement. Remains tachypneic, on high flow. Will transfer to [place] pending bed availability 03/22: transferred to [facility] for further management, Pulmonology, Cardiology (4) Pneumonia: Status: Acute Problem details: -CXR 03/19 shows new small consolidation in the right mid lung -continue IV vancomycin and Zosyn - discontinued and started on meropenem 03/20 -mucinex, incentive spirometry, aerobika -WBC trending down, procalcitonin trending down, CRP trending down, strep pneumo/Legionella negative -repeat CT findings 03/20 as above. Sputum gram stain with epithelial cells, culture pending (5) Hypertension: Status: Acute Problem details: -holding lisinopril and HCTZ given hypotension in sepsis (6) Type 2 diabetes mellitus: Status: Acute Problem details: -most recent A1c 6.7 -continue Jardiance -glucose checks ACHS, insulin sliding scale (7) Depression: Status: Acute Problem details: -continue Lexapro and bupropion (8) JASWANT (obstructive sleep apnea): Status: Acute Problem details: -continue CPAP (9) Transaminitis: Status: Acute Problem details: -LFTs elevated, previously WNL. Lipase 131. recent vague abdominal pain -history cholecystectomy -CT shows no abnormal biliary duct dilatation -abdominal ultrasound ordered in setting of sepsis shows ecogenic liver, common bile duct 5mm 03/20: AST, ALT, alk-phos stable. Bilirubin doubled 1.2 ->2.3. Right upper quadrant tenderness on palpation without guarding, no peritoneal signs. Discussed with General surgery, and ID, trend LFTs. If still elevated MRCP. Would not currently could tolerate this given respiratory distress 03/21: T bili mildly decreased. May still benefit from MRCP/ERCP. Will defer to [facility] care (10) Hypokalemia: Status: Acute Problem details: -potassium 3.2 -> 3.3, replace with oral supplement -potassium 3.7 ->3.3 following diuresis -b.i.d. potassium supplement ordered (11) Nephrolith: Status: Acute Problem details: -CT shows 2 small nonobstructing right nephrolith measuring up to 7mm, no hydronephrosis -renal ultrasound for further evaluation in setting of sepsis, recent incontinence-resolved, confirms nephroliths, no obstruction, no hydronephrosis (12) Pulmonary edema: Status: Acute Problem details: -CT findings as above, in setting of acute sepsis resuscitation -Lasix 40 mg IV x1, monitoring response (13) Atrial fibrillation with RVR: Status: Acute Problem details: -new onset atrial fibrillation with RVR on 03/20. Treated with 1 time dose IV Dilt followed by 1 time IV dose metoprolol, converting to NSR -started on metoprolol 25 mg p.o. b.i.d. -telemetry -enoxaparin increase to therapeutic dose 120 mg b.i.d.. -[id number] score 4 -Discussed oral anticoagulation risks and benefits Echo 03/21/24 Final Impressions: 1. Normal LV size, normal wall thickness, normal function with an estimated EF of 60 - 65%. 2. Right ventricular cavity size is mildly enlarged, global systolic RV function is normal. 3. Normal left atrium size. 4. No significant valve disease detected. DS: Summary Hospital Course Hospital Course: Course of care and details as noted above. Admitted with sepsis, unknown etiology. Acutely worsen, transition to critical care unit. Workup including blood cultures, urine culture, strep culture, lumbar puncture, CT imaging with repeats, CXR. Evidence of E coli bacteremia sensitive to meropenem. Right multi lobular pneumonia with hypoxia and tachypnea, not adequately responding to antibiotics, diuresis, high-flow oxygen support. New onset atrial fibrillation with RVR, managed with beta-queenie and anticoagulant. Transferred to [facility] for higher level of care, ID, Cardiology, pulmonology. Patient is transferred to [facility] for further management with availability of ID, pulmonology, Cardiology. Status at Discharge Functional status at discharge: uses cane/walker (With assist) Overall status at discharge: patient is not back to baseline Time Spent with Patient Time attestation: Total time spent providing and/or coordinating discharge services: Time spent: Greater than 30 minutes Exam Narrative: Exam Narrative: PHYSICAL EXAM General: Tachypneic, conversant, smiles Cardiovascular: RRR without tachycardia. +2 pitting edema Pulmonary: Diffusely diminished, no expiratory wheezes. Dyspneic on high-flow Abdominal: Soft, nondistended, mild tenderness over right upper quadrant, no guarding Neurological: Alert, answering questions appropriately, cranial nerves intact, no focal findings Extremities: Chronic swelling. AROMI. Neurovascularly intact Skin: Warm, dry. Const: Vital Signs, click to edit/add: Vital Signs - 24 hr 03/20/24 14:18 03/20/24 15:30 03/20/24 15:52 Temperature 97.0 F L Pulse Rate 84 Pulse Rate [Pulse Oximeter] 89 Respiratory Rate 24 Blood Pressure [R FA] 105/53 L Pulse Oximetry 90 Oxygen Delivery Me thod [place] Nasal Ca nnula Oxygen Flow Rate 35 Fraction of Inspir ed Oxygen 35 35 03/20/24 15:57 03/20/24 15:57 03/20/24 17:47 Temperature Pulse Rate Pulse Rate [Pulse Oximeter] 89 Respiratory Rate 24 Blood Pressure [R FA] Pulse Oximetry Oxygen Delivery Me thod Oxygen Flow Rate Fraction of Inspir ed Oxygen 35 35 03/20/24 19:00 03/20/24 20:00 03/20/24 20:00 Temperature 98.8 F Pulse Rate Pulse Rate [Pulse Oximeter] 97 Respiratory Rate 32 H 32 H Blood Pressure [R FA] 117/56 L Pulse Oximetry 93 Oxygen Delivery Me thod High Flow Nasal Ca nnula Oxygen Flow Rate 35 Fraction of Inspir ed Oxygen 35 35 03/20/24 21:27 03/20/24 22:00 03/20/24 22:16 Temperature 98.6 F Pulse Rate 97 Pulse Rate [Pulse Oximeter] 125 H Respiratory Rate 32 H Blood Pressure [R FA] 119/61 Pulse Oximetry 93 Oxygen Delivery Me thod High Flow Nasal Ca nnula CPAP Oxygen Flow Rate 4 Fraction of Inspir ed Oxygen 35 03/20/24 22:20 03/20/24 22:53 03/21/24 00:01 Temperature Pulse Rate 113 H Pulse Rate [Pulse Oximeter] 107 H Respiratory Rate 32 H Blood Pressure [R FA] 84/51 L Pulse Oximetry 91 Oxygen Delivery Me thod Oxygen Flow Rate Fraction of Inspir ed Oxygen 03/21/24 01:02 03/21/24 01:19 03/21/24 03:00 Temperature 96.8 F L Pulse Rate 96 Pulse Rate [Pulse Oximeter] 94 86 Respiratory Rate 28 H 32 H Blood Pressure [R FA] 109/60 126/64 Pulse Oximetry 86 L 91 Oxygen Delivery Me thod CPAP CPAP Oxygen Flow Rate 6 5 Fraction of Inspir ed Oxygen 03/21/24 06:00 03/21/24 06:11 03/21/24 07:17 Temperature Pulse Rate 73 82 Pulse Rate [Pulse Oximeter] Respiratory Rate Blood Pressure [R FA] Pulse Oximetry Oxygen Delivery Me thod Oxygen Flow Rate Fraction of Inspir ed Oxygen 35 03/21/24 07:55 03/21/24 07:57 03/21/24 08:00 Temperature 97.5 F L Pulse Rate Pulse Rate [Pulse Oximeter] 84 Respiratory Rate 28 H 28 H Blood Pressure [R FA] 110/54 L Pulse Oximetry 90 Oxygen Delivery Me thod High Flow Nasal Ca nnula Oxygen Flow Rate 35 Fraction of Inspir ed Oxygen 35 35 03/21/24 10:07 03/21/24 10:31 03/21/24 10:33 Temperature 97.5 F L Pulse Rate Pulse Rate [Pulse Oximeter] 75 Respiratory Rate 30 H Blood Pressure [R FA] 123/75 Pulse Oximetry 96 Oxygen Delivery Me thod High Flow Nasal Ca nnula Oxygen Flow Rate 35 35 Fraction of Inspir ed Oxygen 45 45 45 03/21/24 11:47 03/21/24 11:48 03/21/24 12:00 Temperature 97.1 F L Pulse Rate Pulse Rate [Pulse Oximeter] 75 Respiratory Rate 32 H 30 H Blood Pressure [R FA] 112/87 Pulse Oximetry 96 Oxygen Delivery Me thod High Flow Nasal Ca nnula Oxygen Flow Rate 35 Fraction of Inspir ed Oxygen 45 45 03/21/24 12:07 03/21/24 14:01 Temperature Pulse Rate 83 Pulse Rate [Pulse Oximeter] Respiratory Rate Blood Pressure [R FA] Pulse Oximetry Oxygen Delivery Me thod Oxygen Flow Rate Fraction of Inspir ed Oxygen 45 DS: Data Data Completed and Pending Labs on day of discharge: Labs from last 24 hours 03/21/24 03/21/24 11:28 07:29 WBC 24.46 H RBC 3.64 L Hgb 10.8 L Hct 32.3 L MCV 89 MCH 30 MCHC 33 Plt Count 145 ESR 83 H VBG pH 7.454 H VBG pCO2 36 L VBG pO2 49.2 H VBG HCO3 25 Sodium 135 Potassium 4.2 Chloride 105 Carbon Dioxide 25 Anion Gap 5 L BUN 29 Creatinine 0.9 Estimated Creat Clear 41.19 Estimated GFR 70 Glucose 125 H Calcium 8.0 L Total Bilirubin 2.1 H AST 51 H ALT 31 Alkaline Phosphatase 156 H C-Reactive Protein 21.1 H Total Protein 6.3 Albumin 2.9 L Lab Acknowledgement Test Added Preliminary micro results at discharge 03/20/24 12:00 Blood Culture - Preliminary Blood NO GROWTH AFTER 24 HOURS 03/19/24 13:12 Body Fluid Culture - Preliminary Cerebrospinal Fluid NO GROWTH AFTER 24 HOURS 03/19/24 07:42 Urine Culture - Preliminary Urine,Clean Catch No growth. 03/18/24 20:48 Blood Culture - Preliminary Blood Escherichia coli 03/19/24 12:36 Blood Culture - Preliminary Blood Gram negative gail Imaging CT abdomen pelvis: Attestation: I have reviewed the pertinent imaging results. Radiologist's impression: Lower chest: Dictated separately. Liver: Unremarkable. Normal in size and attenuation. No suspicious masses. Gallbladder and bile ducts: Status post cholecystectomy. No abnormal biliary ductal dilatation. Pancreas: Unremarkable. No mass or inflammation. Spleen: Unremarkable. Normal in size. No masses. Adrenal glands: Unremarkable. No nodules. Kidneys: 2 small nonobstructing right nephroliths measuring up to 7 mm. Unremarkable left kidney. No suspicious mass. No hydronephrosis. GI tract: Diverticulosis without pericolonic inflammation. No obstruction. Normal appendix. Vasculature: Abdominal aorta is normal in caliber. Mesenteric arteries are patent. Lymph nodes: No lymphadenopathy. Peritoneum/Abdominal Wall: Unremarkable. No free air or significant free fluid. Pelvis: Status post hysterectomy. Bones: Unremarkable for age. IMPRESSION: 1. No acute findings within the abdomen or pelvis. 2. Few nonacute findings, as above. CTA chest: Attestation: I have reviewed the pertinent imaging results. Radiologist's impression: Heart and vasculature: Contrast opacification of the pulmonary arterial tree is adequate. No sign of pulmonary embolism. Heart size is normal. Thoracic aorta and pulmonary artery are normal in caliber. Lungs and pleura: No suspicious nodules or infiltrates. Mild atelectasis within the anterior lingula. No pleural effusions or pneumothorax. Lymph nodes/mediastinum: No mediastinal, hilar, or axillary adenopathy. Chest wall: No masses. Upper abdomen: Dictated separately. Bones: Old right lateral 6th and anterolateral left 5th-7th rib fractures. IMPRESSION: No pulmonary embolism. No acute findings in the chest. CT scan - head: Attestation: I have reviewed the pertinent imaging results. Radiologist's impression: Brain parenchyma, CSF spaces, and extra-axial spaces: The denney-white differentiation is normal. No sign of mass, hemorrhage, or midline shift. No hydrocephalus. No extra-axial fluid collection. Skull base and calvarium: The visualized paranasal sinuses demonstrate no acute or significant findings. The mastoid air cells are clear. The visualized orbits are grossly unremarkable. No skull fracture. Atherosclerotic calcification of the bilateral carotid siphons. IMPRESSION: No evidence of an acute intracranial abnormality. Chest x-ray: Attestation: I have reviewed the pertinent imaging results. Radiologist's impression: Lung volumes are low. New small nodular consolidation in the right lateral midlung. No pleural effusion. No pneumothorax. Heart size is within normal limits for volumes and technique. IMPRESSION: New small consolidation in the right mid lung may be infectious or inflammatory. US - abdomen: Attestation: I have reviewed the pertinent imaging results. Radiologist's impression: Evaluation limited by patient pain and bowel gas. Liver: Echogenic liver measuring 18.7 centimeters No definite mass, though evaluation is limited. Gallbladder: Cholecystectomy. Common bile duct: 5 mm. Pancreas: Mildly echogenic appearance of the pancreas, which can be seen with fatty infiltration. Evaluation the pancreatic tail is limited by bowel gas. Spleen: Normal in size and appearance. Kidneys: Both kidneys are normal in size. Visualization is limited due to bowel gas. Vasculature: Proximal abdominal aorta and IVC are normal in caliber. IMPRESSION: Echogenic liver, which can be seen with fatty liver. Kidneys are suboptimally evaluated on this exam. CTA chest 03/20: Attestation: I have reviewed the pertinent imaging results. Radiologist's impression: Heart and vasculature: Mild cardiomegaly without pericardial effusion. Thoracic aorta and pulmonary artery are of normal caliber. No evidence of pulmonary embolism. Mild coronary artery calcification is seen. Lungs and pleura: There is interval increase in the multifocal ground-glass opacities, most pronounced into the right upper lobe. Diffuse interlobular septal thickening is present. Minimal bilateral pleural effusion. The central airways are patent. No concerning mass or nodule. Lymph nodes/mediastinum: Few prominent mediastinal lymph nodes are noted, largest in the right paratracheal location measures about 13 x 12 millimeter. One of the lymph node in subcarinal location measures about 14 x 13 millimeter. Few subcentimeter sized hilar lymph nodes are also present. Upper abdomen: Dictated separately on the same day CT abdomen and pelvis. Bones: Multilevel moderate to advanced degenerative changes of the spine. Healed bilateral rib fractures. IMPRESSION: 1. No pulmonary embolism. 2. Multifocal ground-glass opacities, most pronounced in the right upper lobe with interlobular septal thickening. Minimal bilateral effusion. Findings are concerning for interstitial pulmonary edema. Atypical infectious-inflammatory infiltrates would have a similar appearance in the appropriate clinical settings. 3. Reactive subcentimeter sized mediastinal lymph nodes. Abdomen/pelvis CTA 03/20: Attestation: I have reviewed the pertinent imaging results. Radiologist's impression: Lower chest: Minimal bilateral pleural effusion and scattered ground-glass opacity with interlobular septal thickening. Liver: Normal in size and attenuation. No suspicious masses. Gallbladder and bile ducts: Status post cholecystectomy without biliary duct dilatation. Pancreas: Moderate fatty replacement of the pancreas. No adjacent inflammatory changes or duct dilatation. Spleen: Normal in size. No masses. Adrenal glands: No suspicious mass. Kidneys: Bilateral kidneys are normal in size with symmetric enhancement. Redemonstration of nonobstructing right-sided nephrolithiasis measuring about seven and 9 millimeter, similar to previous exam. No hydronephrosis. No left-sided nephrolithiasis. Nonspecific bilateral perinephric fat stranding. Suggestion of small cyst at the lower pole of right kidney. GI tract: No findings of bowel obstruction. Normal appendix. Colonic diverticulosis without diverticulitis. Vasculature: Abdominal aorta is normal in caliber. Lymph nodes: No lymphadenopathy. Peritoneum/Abdominal Wall: No free air or significant free fluid. Diastasis of recti. Pelvis: Uterus is surgically absent. Bones: Grade 1 anterolisthesis of L5 over S1, unchanged. Multilevel degenerative changes of the spine. IMPRESSION: 1. No acute findings in the abdomen and pelvis. 2. Redemonstration of nonobstructing right nephrolithiasis. 3. Colonic diverticulosis without diverticulitis. Discharge Plan Discharge Disposition: [facility] Date of Admission: 03/19/24 08:12 Attending Provider on Discharge: Gaye Schaefer Primary Care Provider: Provider,Not a Local Condition: Improved Discharge Orders: Transfer of Care to Other Hospital (ORDER); Ordered 03/22/24 Ordered By: Claire Clark Oxygen: Yes Oxygen Delivery Method: High flow Oxygen Flow Rate: Rate 35/FiO2 35 Urinary Catheter: No Services not available here: ICU
[2024-03-22] MEDS: FUROSEMIDE 10 MG/ML inj 40 MG IVP (12:30)
[2024-03-22] MEDS: POTASSIUM CHLORIDE 10 MEQ CAPSULE ER 40 MEQ PO (17:49)
--- NOTE | 2024-03-22 19:51 | RESP.RT ---
Patient wears home CPAP at night and .35HFNC@35Lpm during the day. She is able to use Aerobika independently. SATing 88-92% on HFNC. She has been stable on these settings and waiting to transfer.
[2024-03-22] MEDS: ENOXAPARIN 120 MG/0.8 ML INJ SUBCUT (20:46)
[2024-03-23] VITALS: BP 111/61; PULSE 85; RESP 22; TEMP 35.9; O2SAT 92
[2024-03-23 00:22] VITALS: PULSE 82
[2024-03-23 01:00] VITALS: O2SAT 92
--- NOTE | 2024-03-23 01:27 | PC.NURSE ---
Discharge Note: Nurse to Nurse report given to Albin at [facility], all questions answered, pt informed of transfer, all pt questions answered and belongings sent with patient, left via EMS stretcher at [id number]
== END 2024-03-23 01:17 | disposition short-term general hospital (02) | DRG 871 ==
LOC: ED 03-19 02:06 → MEDSURG 03-19 02:47
PROVIDERS: Physician Assistant; Admitting Provider Internal Medicine; Emergency Provider Student in an Organized Health Care Education/Training Program; Visit Provider Internal Medicine
DX: A41.51 Sepsis due to Escherichia coli [E. coli] (principal); J18.9 Pneumonia, unspecified organism; J96.01 Acute respiratory failure with hypoxia; J81.0 Acute pulmonary edema; Z68.42 Body mass index [BMI] 45.0-49.9, adult; I48.91 Unspecified atrial fibrillation; E11.9 Type 2 diabetes mellitus without complications; G47.33 Obstructive sleep apnea (adult) (pediatric); E87.6 Hypokalemia; Z79.84 Long term (current) use of oral hypoglycemic drugs; R74.01 Elevation of levels of liver transaminase levels; E66.01 Morbid (severe) obesity due to excess calories; R32 Unspecified urinary incontinence; I10 Essential (primary) hypertension; N20.0 Calculus of kidney; K21.9 Gastro-esophageal reflux disease without esophagitis; F32.A Depression, unspecified
CPT/HCPCS: 36415; 62270; 70450; 71045; 71275; 74177; 76700; 80048; 80053; 80076; 81001; 82803; 82945; 82962; 83605; 83690; 83735; 83880; 84145; 84157; 84484; 85025; 85027; 85651; 86140; 87040; 87070; 87081; 87086; 87186; 87205; 87449; 87631; 87651; 87800; 87899; 89051; 93005; 93306; 94664; 94761; 99285; 99291; A9270; G0378; J1650; J1940; J2185; J2543; J3372; J7030; J7050; Q9967; S0106

== ENCOUNTER 2024-03-23 01:06 | Outpatient (CLI) | payer BC, SELFPAY | END 2024-03-23 01:07 | disposition home or self-care (01) | LOC: AMB 04-07 08:31 | PROVIDERS: Visit Provider Emergency Medicine Emergency Medical Services | DX: A41.9 Sepsis, unspecified organism (principal); R78.81 Bacteremia; J96.01 Acute respiratory failure with hypoxia; J18.9 Pneumonia, unspecified organism; I10 Essential (primary) hypertension; E11.9 Type 2 diabetes mellitus without complications; E87.6 Hypokalemia | CPT/HCPCS: A0425; A0427 ==